=== PATIENT | female | born 1935 | race Caucasian/White ===

== ENCOUNTER 2025-03-11 12:33 | Outpatient (REF) | payer MEDICARE, SELFPAY ==
--- NOTE | ~2025-03-11 | XR_ITS ---
EXAMINATION: XR LUMBOSACRAL SPINE CLINICAL INFORMATION: M48.062 - Spinal stenosis, lumbar region with neurogenic claudication COMPARISON: None available. TECHNIQUE: Lateral views in neutral, flexion and extension position. AP view lumbar spine. FINDINGS: Limited examination due to decreased mineralization demonstrated no gross malalignment in neutral position or in flexion and or extension. 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 There is multilevel endplate sclerosis and marginal osteophyte formation with superior endplate compression deformity and likely 50% volume loss at L3. Vascular calcifications. No acute cortical disruption or gross malalignment. 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 Osteopenia versus osteoporosis. No gross listhesis or instability. Compression deformity likely old and osteoporotic at L3. Atherosclerosis disease. Electronically signed by: Johnny Whitten MD 03/11/2025 01:49 PM EDT
--- OUTSIDE RECORDS SUMMARY | 2025-03-11 14:31 | XMS_ITS | Data Portability ---
Author Organization 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 Plan of Treatment Reminders Order Date Submit Date Provider Last Modified By Organization Details Last Modified Time Details Appointments Establish ed Patient 15 2025 09:15A Kareem German MD Not available Not available Not available Lab TSH + free T4, serum 2024 08 025 ELIANE [facility], [address], [place], [address], 02/02/2025 07:05:43 Referral None recorded. Procedures None recorded. Surgeries None recorded. Imaging None recorded. Medication Orders None recorded. Patient TargetsNo targets recorded. Patient Instructions Encounter Date Encounter Id Patient Instructions Last Modified By Organization Details Last Modified Time 02/01/2025 [id number] osteoporosis: care instructions Not available 02/01/2025 15:33:31 A healthy lifestyle: care instructions Not available 02/01/2025 15:33:31 Reason for Referral None Reported. Results Created Date Observation Date Name Description Value Unit Range Abnormal Flag Note LastModifiedBy Organization Detail LastModifiedTime 02/02/20 25 02/02/2025 TSH+F REE T4 TSH 0.055 uIU/m L 0.450- 4.500 below low normal Not Available [facility] ([facility]) [address], [place], [address], 02/02/2025 07:05:43 02/02/20 25 02/02/2025 TSH+F REE T4 T4,free(dire ct) 1.83 NG/dL 0.82-1 .77 above high normal Not Available [facility] ([facility]) [address] [facility], [place], [address], 02/02/2025 07:05:43 Result Notes None recorded. Procedures Surgical History Date Name Laterality Status Provider Name and Address Organization Details Recorded Time 07/31/19 24 total knee replacement completed zach capps'jarett [facility]. 02/01/2025 14:54:40 12/29/19 23 total knee replacement completed zach o'jarett [facility]. 02/01/2025 14:54:07 hysterectomy completed zach o'jarett [facility]. 02/01/2025 14:54:53 tonsillectomy completed zach o'jarett [facility]. 02/01/2025 14:55:03 Hemorrhoidectomy completed zach o'jarett [facility]. 02/01/2025 14:55:24 [address] surgery [address] [facility] jefry'jarett [facility]. 02/01/2025 14:57:34 Imaging Results None recorded. Procedure Notes None recorded. Medical Equipment None Reported. Allergies Allergen ID Allergen Name Allergen Category Reaction Reaction Severity Criticality Documentation Date Start Date Code Code System Note Provider Name and Address Organization Details Recorded Time [id number] honey bee venom medicatio n Not available Not available Not available 02/01/2025 73228 7 RxNorm zach o'jarett [facility]. 14:56:51 Medications Name Sig Start Date Stop Date Status Note LastModified by Organization Details LastModified Time amoxicillin 500 mg capsule TAKE 1 CAPSULE BY MOUTH THREE TIMES A DAY FOR 7 DAYS 02/01 completed Not Available Not Available Not Available atorvastati n 40 mg tablet TAKE 1 TABLET BY MOUTH EVERY DAY active Not Available Not Available No t Available carvedilol 6.25 mg tablet TAKE 1 TABLET BY MOUTH TWICE A DAY active Not Available Not Available No t Available spironolact one 25 mg tablet TAKE 1 TABLET BY MOUTH EVERY DAY active Not Available Not Available No t Available levothyroxi ne 100 mcg tablet TAKE 1 TABLET BY MOUTH EVERY DAY active Not Available Not Available No t Available prednisolon e acetate 1 % eye drops,suspe nsion INSTILL ONE DROP INTO PROCEDURE EYE TWICE DAILY FOR 5 DAYS 02/01 completed Not Available Not Available Not Available levothyroxi ne 125 mcg tablet TAKE 1 TABLET BY MOUTH EVERY DAY active Not Available Not Available No t Available levothyroxi ne 150 mcg tablet TAKE 1 TABLET BY MOUTH EVERY DAY active Not Available Not Available No t Available ibuprofen 600 mg tablet TAKE 1 TABLET BY MOUTH EVERY 6 HOURS TO EVERY 8 HOURS NEEDED FOR PAIN active Not Available Not Available No t Available amoxicillin 875 mg-potassiu m clavulanate 125 mg tablet TAKE ONE TABLET BY MOUTH EVERY TWELVE HOURS FOR SEVEN DAYS 02/01 completed Not Available Not Available Not Available Asprin Ec Low Dose 81 mg tablet,analia yed release Take 1 tablet twice a day by oral route. active Not Available Not Available No t Available bumetanide take one tablet Friday and morning active Not Available Not Available No t Available brimonidine 0.2 %-timolol 0.5 % eye drops INSTILL ONE DROP IN TO BOTH EYES TWICE A DAY active Not Available Not Available No t Available Lumigan 0.01 % eye drops APPLY 1 DROP INTO BOTH EYES AT BEDTIME active Not Available Not Available No t Available Vitals Date Recorded Body height Body mass index (BMI) Body weight Pain severity - 0-10 verbal numeric rating [Score] - Reported Body temperature Heart rate Oxygen saturation Oxygen saturation in Arterial blood by Pulse oximetry Systolic And Diastolic Provider Name and Address Organization Details Last Updated DateTime 5 158.75 cm 31.9 kg/m2 38693.6 5 g 7 97.3 [degF] 69 /min 97 % 97 % 178/80 mm[Hg] zach thorpe MA [facility] 14:58:13 Social History Question Answer Notes LastModified by Organizat ion Details LastModified Time Tobacco Smoking Status Never Smoker zach charles MA [facility] 02/01/2025 14:52:02 What Is Your Level Of Caffeine Consumption? Occasional One Cup In The Morning Information not available 02/01/2025 Are You Deaf Or Do You Have Serious Difficulty Hearing? Yes [email or web address] Information not available 02/01/2025 Which Of Your Hands Is Dominant? Right Information not available 02/01/2025 What Was The Date Of Your Most Recent Tobacco Screening? 02/01/2025 [email or web address] Information not available 02/01/2025 Sex: Unknown Functional Status Question Answer Note LastModified by Organizat ion Details LastModified Time Do you use any illicit or recreational drugs? No [email or web address] Information not available 02/01/2025 What is your level of alcohol consumption? None [email or web address] Information not available 02/01/2025 Are you able to care for yourself independently? No Information not available 02/01/2025 Mental Status None recorded. Family History Relationship Description Onset Age of this Age Resolved Age Notes LastModified by Organization Details LastModified Time Father No current problems or disability [email or web address] Not available 01/14 14:50:46 Mother No current problems or disability Not available 01/14 14:50:46 Medical History No medical history recorded. Gynecological HistoryNo gynecological history recorded. Obstetrics History GPAL:G 0 P 0 0 0 0 Immunizations Vaccine Type Date Status Note Provider Nam e and Address Organization Details Recorded Time COVID-19, mRNA, LNP-S, PF, 100 mcg/0.5mL dose or 50 mcg/0.25mL dose 1 completed Not Available [facility] 02/01/2025 14:37:00 COVID-19, mRNA, LNP-S, PF, 100 mcg/0.5mL dose or 50 mcg/0.25mL dose 1 completed Not Available [facility] 02/01/2025 14:37:00 Influenza, MDCK, quadrivalent, preservative 2 completed Not Available [facility] 02/01/2025 14:37:00 Past Encounters Encounter ID Performer Location Encounter Start Date Encounter Closed Date Diagnosis/Indication Diagnosis SNOMED-CT Code Diagnosis ICD10 Code Diagnosis IMO Codes Diagnosis Note [id number] Tonio German MD [facility] [address] [facility] [address] [place] [address] 02/01/2025 14:35:58 02/01/2025 15:39:36 Primary hypothyroidism 31097608 E03.9 60684 I am repeating a TSH because I could not find a recent TSH on her labs. I told her to take levothyrox ine on empty stomach away from other medication . Rationale for taking medication this way was explained to the patient. We also discussed changing to a branded medication but she is not interested because Synthroid gave her a constant headache Senile osteoporosis 1804 0001 M81.0 2200 She is not interested in bone spasm medication and therefore file precaution s, adequate vitamin D and adequate calcium from diet and supplement ation. In addition she should do some weightbear ing exercises and gait training to prevent falls Prediabetes 889760112 R7 3.03 [id number] No medication s necessary. This following some diet and losing weight may help Health Concerns Section Related Observation LastModified by Organization Detai ls LastModified Time None Recorded Concern Status LastModified by Organization Details LastModified Time None Recorded Advance Directives Directive None Recorded Payers Insurance Date Sequence Insurance Name Policy Number Policy Molina Covered Member ID Molina Member ID Guarantor Name 02/11/2025 1 [facility]MEDICARE REPLACEMENT HMO) Chey Ragland [id number] Chey Ragland 02/11/2025 1 [facility] Chey Ragland [id number] Chey Ragland Notes Date Note Type Note Provider Name and Address Organization Details Recorded Time 02/01/2025 text/html ROS as noted in the HPI Referred for hypothyroidism but I do not have TSH. Her hypothyroidism started more than 40 years ago. She was on Euthyrox for a long time. She became thyrotoxic with this medication and therefore changed to levothyroxine when she was 49 years old. Her thyroid levels are up-and-down. She feels very sluggish and fatigued and therefore her primary care suggested for an endocrine opinion for her thyroid medication. She takes levothyroxine with all other pills and eats breakfast immediately. I do not have any TSH on her. I checked on the [facility] site. She does not have thyroid nodules She has osteoporosis. Her calcium intake seems to be fine. Vitamin D levels are fine. No fracture reported. She is at risk of fall because of her knee issues. She has not fallen down yet. Her T-score is given below of -2.5 qualifies her for a bone specific medications. Some of her friends have bad reaction to Fosamax and therefore does not want to use any kind of osteoporosis medication. Lab investigations done for bone loss were done for some degree and they were negative. PTH was 28, vitamin D was 58. CMS chemistry profile revealed EGFR of 43. Alkaline phosphatase was fine The main issue she has is sciatica radiating to her left side. She had both recently placed and did well On review of her labs, she has prediabetes with fasting glucose of 124 an A1c of 6.1%. Diet and exercise discussed with the patient. She is unable to exercise because of back pain Review of system is positive for fatigue, some weight gain and feeling very loopy. She is not interested in a lot of day-to-day things. She sleeps well. She lives with her son Bone [email or web address]/30/2024 10:17 AM ESTSusans result has an attachment that is not available.EXAM: BONE MINERAL DENSITYPROCEDURE: The bone mineral density (BMD) of the spine and proximal left femur was determined using an external X-ray source ([employer]).SITE: [facility]: Prior BMD of 2022FINDINGS:L1: BMD 0.84gm/cm2 T-Score -1.4 Z-score: 1.1 prior BMD 0.90Femoral neck: BMD 0.58gm/cm2 T-Score -2.5 Z-score: 0.1Total hip: BMD 0.87 gm/cm2 T-Score -0.6 Z-score: 1.7 prior BMD 0.89The World Health Organization (WHO) defines osteoporosis (as studied in post-menopausal women) as BMD with a T value of (-)2.5 or less at any site. Osteopenia is defined by a T value between (-)1.1 and (-)2.4.Trabecular bone score (TBS)L1-L4:TBS 1.27Z-score: na (normal microarchitecture: >1.31; degraded: <1.24) Tonio German MD [address] [place] [address], [phone], [facility]. 02/01/2025 17:01:53 OBGyn Episode No OBEpisode recorded.
== END 2025-03-11 12:34 | disposition home or self-care (01) ==
LOC: HO.HOSX 12:33
PROVIDERS: PCP Internal Medicine; Visit Provider Neurological Surgery
DX: M48.062 Spinal stenosis, lumbar region with neurogenic claudication (principal)
CPT/HCPCS: 72110; 99202

== ENCOUNTER 2025-03-11 12:33 | Outpatient (AMB) | payer MEDICARE, SELFPAY ==
--- OUTSIDE RECORDS SUMMARY | 2024-01-23 09:20 | XMS_ITS ---
Author Organization [facility] [email or web address], [facility] Address [address] [address] Care Team Providers Care Lab Asst Name Role Phone Zac Castro Primary Care Provider Unavail Emir Oleary Unavailable [phone] REASON FOR VISIT 3 mon f/u Encounters Encounter Location Date Provider Diagnosis [facility]ENCE [facility], [address] [address] 01/23/2024 Emir Reddy Plan Of Treatment Next Appt Details Provider Name:Emir horan, 06/02/2025 01:00:00 PM, [address] [facility], [address], [place], [address], Progress Notes * Chey RAGLANDDOB: (89 yo F)Acc No.[id number]:01/23/2024 Progress Notes Patient: Chey STONE Provider: Garth Reddy MD :1935 A ge:88 Y S ex:Female Date:01/23/2024 Address:[address] [place], [place] [phone] Pcp:Zac Castro Subjective: * Chief Complaints: * 1 . 3 mon f/u. * Medical History: Objective: * Vitals: Assessment: Plan: * Treatment: * * Electronic signature of Arturo Reddy MD on 03/11/2025 at 02:04 PM EDT Sign off status: Pending * Provider: Garth Reddy MD Date: 0 01/23/2024 Generated for Lore colunga/Medina/Deshaun on: 0 03/11/2025 02:04 PM EDT
--- OUTSIDE RECORDS SUMMARY | 2024-03-19 09:40 | XMS_ITS ---
Author Organization [facility] [employer], [facility] Address 33 [facility] [address] [place] [address] Care Team Providers Care Director Of Software Engineering Name Role Phone Zac Castro Primary Care Provider Unavail Emir Oleary Unavailable [phone] REASON FOR VISIT f/u Encounters Encounter Location Date Provider Diagnosis [facility] NEUR[facility]CIENCE [facility], [facility] [address] [facility] [address] [place] [address] 03/19/2024 Emir Reddy Plan Of Treatment Next Appt Details Provider Name:Emir horan, 06/02/2025 01:00:00 PM, [address] [facility], [address], [place], [address], Progress Notes * Chey RAGLANDDOB: (89 yo F)Acc No.[id number]:03/19/2024 Progress Notes Patient: Chey STONE Provider: Garth Reddy MD :1935 A ge:88 Y S ex:Female Date:03/19/2024 Address:[address] [place], [place] [phone] Pcp:Zac Castro Subjective: * Chief Complaints: * 1 . F/u. * Medical History: Objective: * Vitals: Assessment: Plan: * Treatment: * * Electronic signature of Arturo Reddy MD on 03/11/2025 at 02:04 PM EDT Sign off status: Pending * Provider: Garth Reddy MD Date: 1 Generated for Kendrai keanu/Medina/eTransmitting on: 0 03/11/2025 02:04 PM EDT
--- OUTSIDE RECORDS SUMMARY | 2024-04-07 07:00 | XMS_ITS ---
Author Organization [facility] [employer], [facility] Address 33 [facility] [address] [place] [address] Care Team Providers Care Environmental Services Assistant Name Role Phone Zac Castro Primary Care Provider Unavail Emir Oleary Unavailable [phone] REASON FOR VISIT MRI f/u Encounters Encounter Location Date Provider Diagnosis [facility], [address] [place] [address] 04/07/2024 Emir Reddy Plan Of Treatment Next Appt Details Provider Name:Emir horan, 06/02/2025 01:00:00 PM, [address] [facility], [address], [place], [address], Progress Notes * Chey RAGLANDDOB: (89 yo F)Acc No.[id number]:04/07/2024 Progress Notes Patient: Chey STONE Provider: Garth Reddy MD :1935 A ge:88 Y S ex:Female Date:04/07/2024 Address:[address] [place], [place] [phone] Pcp:Zac Castro Subjective: * Chief Complaints: * 1 . MRI f/u. * Medical History: Objective: * Vitals: Assessment: Plan: * Treatment: * * Electronic signature of Arturo Reddy MD on 03/11/2025 at 02:04 PM EDT Sign off status: Pending * Provider: Garth Reddy MD Date: 1 Generated for Lore colunga/Medina/eTransmitting on: 0 03/11/2025 02:04 PM EDT
--- NOTE | 2025-03-11 12:57 | A.SPINEOV_ITS ---
Vital Signs 03/11/25 12:58 Height 5 ft 4 in Weight 174 lb BMI 29.9 Intake Visit Reasons: low back pain/sciatica Intake Note: Ms. Ragland is here today c/o low back pain that radiates to the left leg. Windows Infrastructure Engineer Required: No Allergies No Known Allergies Allergy (Verified 03/11/25 12:58) Physical Exam Vital Signs: BMI result Body Mass Index 29.9 Assessment & Plan Assessment & Plan (1) Lumbar stenosis with neurogenic claudication: Code(s): M48.062 - Spinal stenosis, lumbar region with neurogenic claudication Category: Medical Plan: Dear colleague Thank you for referring Chey Ragland to the office today with a chief complaint of left sided sciatica. HPI: This 89-year-old female recently had knee replacements done. Shortly after she developed pain radiating down the front of her thigh with walking and standing. Leaning forward or sitting down improves the symptoms. She denies weakness or numbness. The right side is unaffected. The following conservative treatment options were tried without success antiinflammatories, tylenol, physical therapy for more than a year, and cortisone shots. In the steroid injections gave her temporary relief. PMH: Hypertension, hypothyroidism, osteoporosis Medications: Levothyroxine, atorvastatin, baby aspirin, Pina legs spiron olactone Allergies: NKDA Social history: Lives alone. Nonsmoker Physical Exam: Pleasant female. On inspection of the lumbar spine there is a mild lumbar degenerative scoliosis the apex towards the left side. Straight leg raise is negative. No motor or sensory deficits. No pathological reflexes. Radiological Studies: MRI done at [facility] on 02/16/2025 shows L2-3, L3-4 and L4-5 imhhwrnm-bu-pelutc central stenosis and xulwghlo-rw-nruhno left L3 and L4 foraminal stenosis caused by the degenerative scoliosis. Dynamic x-rays today show degenerative scoliosis with the apex at L2-3 and L3-4. Impression/Plan: This patient is suffering from unilateral claudication due to spinal stenosis at L3-4 and L4-5 with central stenosis and severe L4 and L3 foraminal stenosis on the left side. I do not think she is symptomatic from the L2-3 region. The symptoms are debilitating and causing her to be house bound. Trying to fix the unilateral neurogenic claudication symptoms seems be more beneficial than doing nothing. Therefore I offered her a left L3-4 and L4-5 decompression with a L3 and L4 foraminotomy followed by posterior segmental instrumentation L3-L5 and inter transverse process fusion. Thank you for allowing me to participate in your patients care. total time spent was 50 minutes in counseling ,coordination of plan, personal review of imaging, surgical decision making and subsequent plan Marvin Suh MD, PhD Spine Fellowship Trained Neurosurgeon Director, [facility] Orders: Orders XR lumbar spine 4V min Today M48.062 - Spinal stenosis, lumbar region with neurogenic claudication Coding Level of Care Code New Pt Level 4 (18428) Diagnoses Lumbar stenosis with neurogenic claudication M48.062
[2025-03-11 12:58] VITALS: BMI 29.9
--- OUTSIDE RECORDS SUMMARY | 2025-03-11 14:04 | XMS_ITS | Patient Health Record ---
Author Organization [facility] [employer], [facility] Address [address] [facility] [address] [place] [address] Care Team Providers Care Construction Management Assistant Name Role Phone YolisZackary onofreneth Primary Care Provider Unavail able Emir Reddy Unavailable [phone] Allergies Allergen (clinical drug ingredient) Drug/Non Drug Allergy documented on EMR Reaction Allergy Type Onset Date Status Bee Sting Unknown Allergy Active Results Component Value Reference Range Notes MR-Brain (C-/C+) CPT 06452 Reviewed date:05/18/2024 02:58:10 PM Interpretation: Performing Lab: Notes/Report: [facility] - [facility] Accession Number: [id number] Patient Name: CHEY GODDARD Date of : 1935 Date of Exam: 05-16-2024 Referring Physician: Emir Reddy [facility], [address], [address] [place] [address] Exam: MR Brain (C-/C+) CPT 48668 [facility] EX[facility]ATION: MRI brain without and with contrast PHARMACEUTICAL: 0.1 mmol/kg of Dotarem administered intravenously. TECHNIQUE: Multiplanar and multisequence MRI of brain performed without and with intravenous administration of gadolinium. Sequences obtained include: Axial: T2 with fat suppression, FLAIR, DWI with ADC mapping, T1 and GRE/susceptibility images. Sagittal: T1 Postgadolinium sequences: Axial 3D gradient T1, Coronal T1 INDICATION: 88-year-old female who complained of dizziness and giddiness. Prior MR demonstrated an area of susceptibility change in the right posterior frontal centrum semiovale concerning for blood products or cavernoma. Also, a venous angioma was suspected. Follow-up evaluation. COMPARISON: Brain MR exam from 10/18/2023. FINDINGS: The ventricles appear normal in size and there is no evidence hydrocephalus. There is mild prominence of the cortical sulci. There is a 7 mm lesion in the posterior right frontal centrum semiovale demonstrating a peripheral rim of susceptibility change and a central area of increased signal intensity. 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 This finding is stable since the exam from 10/18/2023. There are multiple scattered focal areas of signal abnormality in the periventricular white matter of both cerebral hemispheres. These lesions are nonspecific but probably represent chronic small vessel change. No diffusion abnormality. Seen to indicate an acute infarct. There is a tubular branching enhancing structure in the posterior right frontal lobe consistent with a developmental venous anomaly. This lesion is located near the small cavernoma discussed above. No other enhancing abnormalities are identified within the brain. The orbits appear intact. Patient is status post removal cataracts. The visualized portion of paranasal sinuses appear relatively clear. IMPRESSION: 1. There is a 7 mm lesion in the posterior right centrum semiovale demonstrating a peripheral rim of low signal intensity in central area of increased signal. 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 This finding is stable since the prior exam from 10/18/2023. 2. 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 3. There are scattered small focal areas of signal abnormality in the periventricular white matter of both cerebral hemispheres. These lesions are nonspecific and could represent chronic small vessel change. The size is not significantly changed since the prior exam from 10/18/2023. 4. No diffusion abnormality is seen to indicate an acute infarct. 5. No other enhancing lesion is identified within the brain. If this radiology report contains a blank impression section, it is an incomplete radiology report. Please contact the interpreting radiologist or applicable radiology division as soon as possible to obtain the completed interpretation. Workstation ID: [id number] Electronically Signed By: Tavares Agrawal MD Reason For Referral No Information Medications Medication SIG (Take, Route, Frequency, Duration) Notes Start Date End Date Status Atorvastatin Calcium 40 MG TAKE 1 TABLET BY MOUTH EVERY DAY Oral; Duration: 90 Days Active Spironolactone 25 MG TAKE 1 TABLET BY MOUTH EVERY DAY Oral; Duration: 90 Days Active Bumetanide 0.5 MG PLEASE SEE ATTACHED FOR DETAILED DIRECTIONS Oral; Duration: 90 Days M,T twice a week Not-Taking Levothyroxine Sodium 150 MCG TAKE 1 TABLET BY MOUTH EVERY DAY Oral Once a day; Duration: 90 days Active Carvedilol 6.25 MG TAKE 1 TABLET BY MOUTH TWICE A DAY Oral; Duration: 90 Days Active Brimonidine Tartrate-Timolol 0.2-0.5 % INSTILL 1 DROP ON BOTH EYES TWICE DAILY Ophthalmic; Duration: 30 Days Active Lumigan 0.01 % USE 1 DROP INTO BOTH EYES AT BEDTIME Ophthalmic; Duration: 90 Days Not-Taking Amoxicillin 500 MG TAKE 4 TABLET BY MOUTH ONCE A DAY 1 HOUR BEFORE THE DENTAL PROCEDURE Oral; Duration: 4 Days Not-Taking Latanoprost 0.005 % 1 drop into affected eye in the evening Ophthalmic Once a day Active Losartan Potassium 50 MG TAKE 1 TABLET BY MOUTH EVERY DAY Oral; Duration: 90 Days Not-Taking Aspirin 81 81 MG 1 tablet Orally Once a day Active Meclizine HCl 12.5 MG TAKE 1 TABLET BY MOUTH THREE TIMES A DAY Oral; Duration: 30 Days Not-Taking PreserVision AREDS - as directed Orally Active Social History Tobacco Use: Social History Observation Description Date Details (start date - stop date) Never Smoker NA - NA Tobacco Use/Smoking Question Answer Notes Are you a nonsmoker Alcohol Screen (Audit-C) Question Answer Notes Did you have a drink containing alcohol in the p ast year? No Points 0 Interpretation Negative Problems Problem Type SNOMED Code ICD Code Onset Dates Problem Status W/U Status Risk Notes Problem Hyperlipidemia (97395718) Hyperlipidemia (E78.5) Active confirmed Problem Hypothyroidism (92752918) Hypothyroidism (E03.9) Active confirmed Problem Hypertension (18544865) HTN (hypertension) (I10) Active confirmed Vital Signs Heart Rate 68 /min 06/01/2024 Blood pressure diastolic 78 mm Hg 06/01/2024 Oximetry 95 % 06/01/2024 Height 64 in 06/01/2024 Blood pressure systolic 126 mm Hg 06/01/2024 Weight 180 lbs 06/01/2024 BMI 30.89 kg/m2 06/01/2024 Encounters Encounter Location Date Provider Diagnosis [address] [address] 06/01/2024 Emir Reddy Abnormal brain MRI R90.89 and Dizziness and giddiness R42 [facility], [address] [address] 03/26/2024 Emir Tysonseth Assessments Encounter Date Diagnosis (ICD Code) Assessment Notes Treatment Notes Treatment Clinical Notes Section Notes 06/01/2024 Abnormal brain MRI (ICD-10 - R90.89) 88-year-old right-handed woman with past medical history listed above including recent issues with both hypertension and hypotension presenting for neurology evaluation for ongoing sensation of lightheadedness when standing or walking which is absent with sitting or lying down. Neurologic exam is reassuring with only some findings of mild sensory loss in both feet which is appropriate for age. No nystagmus or ataxia seem to point towards a cerebellar lesion based on exam. It appears as if most of her symptoms are likely related to hear a large swings in blood pressure or may be peripheral vertigo. I strongly encouraged her to continue to follow with her openstack developer and primary care doctor to optimize her blood pressure control medications to reduce her hypertension and avoid hypotension. An inner ear pathology such as peripheral vertigo was also reasonable and she tells me that she has noticed some improvement with ongoing vestibular rehab. She is encouraged to continue with this as she is benefiting from it. If she has any worsening symptoms in the future we can consider reevaluation in clinic. The MRI showed some GRE/SWI changes consistent with hemosiderin staining in the right centrum semiovale. Most likely an abnormal blood vessel such as a cavernoma, venous angioma, or AVM. 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 No surrounding edema or mass effect. We reviewed both the radiology report and the images themselves during today's clinic visit. For now we will continue to monitor this both clinically and with repeat MRI with contrast in about 1 year and will schedule follow-up in clinic so they can review the results once they are available. Her family is also very concerned that she is not drinking adequate water. It sounds like she is drinking maybe 3 bottles of fluid a day. We discussed the importance of adequate hydration and different methods to try to encourage her to drink more including purchasing a motivational large drinking container or setting out multiple bottles in the day for the appropriate amount she should be drinking. 06/01/2024 Dizziness and giddiness (ICD-10 - R42) 88-year-old right-handed woman with past medical history listed above including recent issues with both hypertension and hypotension presenting for neurology evaluation for ongoing sensation of lightheadedness when standing or walking which is absent with sitting or lying down. Neurologic exam is reassuring with only some findings of mild sensory loss in both feet which is appropriate for age. No nystagmus or ataxia seem to point towards a cerebellar lesion based on exam. It appears as if most of her symptoms are likely related to hear a large swings in blood pressure or may be peripheral vertigo. I strongly encouraged her to continue to follow with her openstack developer and primary care doctor to optimize her blood pressure control medications to reduce her hypertension and avoid hypotension. An inner ear pathology such as peripheral vertigo was also reasonable and she tells me that she has noticed some improvement with ongoing vestibular rehab. She is encouraged to continue with this as she is benefiting from it. If she has any worsening symptoms in the future we can consider reevaluation in clinic. The MRI showed some GRE/SWI changes consistent with hemosiderin staining in the right centrum semiovale. Most likely an abnormal blood vessel such as a cavernoma, venous angioma, or AVM. 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 No surrounding edema or mass effect. We reviewed both the radiology report and the images themselves during today's clinic visit. For now we will continue to monitor this both clinically and with repeat MRI with contrast in about 1 year and will schedule follow-up in clinic so they can review the results once they are available. Her family is also very concerned that she is not drinking adequate water. It sounds like she is drinking maybe 3 bottles of fluid a day. We discussed the importance of adequate hydration and different methods to try to encourage her to drink more including purchasing a motivational large drinking container or setting out multiple bottles in the day for the appropriate amount she should be drinking. 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
--- OUTSIDE RECORDS SUMMARY | 2025-03-11 14:04 | XMS_ITS | Encounter Summary ---
Author Organization [facility] Address [address] [place] [address] Care Team Providers Care Eye Clinic Manager Name Role Phone Zac Castro MD Primary Care Provider + Encounter Details Date Type Department Care Team (Late st Contact Info) Description 06/05/2023 External Result Entry [facility] [address] [place] [address] Rochelle Ruiz MA Social History Tobacco Use Types Packs/Day Years Used Date Smoking Tobacco: Never Smokeless Tobacco: Never Comments:: Comments Unknown Sex and Gender Information Value Date Recorded Sex Assigned at Female 03/01/2023 3:04 PM EDT Legal Sex Female 3:41 AM EDT Gender Identity Female 03/01/2023 3:04 PM EDT Sexual Orientation Not on file documented as of this encounter Plan of Treatment Not on file documented as of this encounter Procedures * Due to [place] [employer] law, this organization might not be sharing negative HIV tests. Procedure Name Priority Date/Time Associated Diagnosis Comments CBC, OUTSIDE LAB Routine 05/21/2023 VITAMIN D 25 OH, OUTSIDE LAB Routine 05/21/2023 IRON, OUTSIDE LAB Routine 05/21/2023 FERRITIN, OUTSIDE LAB Routine 05/21/2023 COMPREHENSIVE METABOLIC PANEL, OUTSIDE LAB Routine 05/21/2023 documented in this encounter Results * Due to [place] [employer] law, this organization might not be sharing negative HIV tests. * CBC, Outside Lab (05/21/2023) Hemoglobin 14.6 g/dL Hematocrit 44.0 % Platelets 195 10*3/uL Blood Structure of peripheral vein / Unknown 05/21/2023 us Unknown Provider LAB BLOOD ORDERABLES Final R esult * Comprehensive Metabolic Panel, Outside Lab (05/21/2023) Pathologist [facility] Sodium 140 mmol/L Potassium 5.0 Chloride 103 Carbon Dioxide 21 Glucose 105 BUN 29 mg/dL Creatinine 1.02 mg/dL eGFR Non- 54 Calcium 9.5 mg/dL Total Protein 6.6 g/dL Albumin 4.3 g/dL Blood Structure of peripheral vein / Unknown 05/21/2023 us Unknown Provider LAB BLOOD ORDERABLES Final R esult * Iron, Outside Lab (05/21/2023) Pathologist [facility] Iron, Total 74 Blood Structure of peripheral vein / Unknown 05/21/2023 us Unknown Provider LAB BLOOD ORDERABLES Final R esult * Vitamin D 25 OH, Outside Lab (05/21/2023) Pathologist [facility] Vitamin D 25 OH 65.2 Blood 05/21/2023 us Unknown Provider LAB BLOOD ORDERABLES Final R esult * Ferritin, Outside Lab (05/21/2023) Pathologist [facility] Ferritin 127 Blood Structure of peripheral vein / Unknown 05/21/2023 us Unknown Provider MD LAB BLOOD ORDERABLES Final R esult documented in this encounter Visit Diagnoses Not on filedocumented in this encounter Care Teams Eye Clinic Manager Relationship Specialty Start Date End Date Zac Castro MD PCP - General Internal Medicine 03/27/21 documented as of this encounter
--- OUTSIDE RECORDS SUMMARY | 2025-03-11 14:04 | XMS_ITS | Encounter Summary ---
Author Organization [facility] Address [address] [place] [address] Care Team Providers Care Social Work Case Manager Name Role Phone Zac Castro MD Primary Care Provider [phone] Encounter Details Date Type Department Care Team (Late st Contact Info) Description 07/19/[address] [facility] Pre-Admission Testing [address] [place] [address] Ramona Caicedo, SHAVON Social History Tobacco Use Types Packs/Day Years Used Date Smoking Tobacco: Never Smokeless Tobacco: Never Comments Unknown Sex and Gender Information Value Date Recorded Sex Assigned at Not on file Legal Sex Female 6:56 PM EDT Gender Identity Not on file Sexual Orientation Not on file documented as of this encounter Plan of Treatment Not on file documented as of this encounter Procedures * Due to [place] state law, this organization might not be sharing negative HIV tests. Procedure Name Priority Date/Time Associated Diagnosis Comments MRSA CULTURE SCREEN, NASAL ONLY Routine 07/19/2022 11:52 AM EST Preoperative examination ACTIVATED PARTIAL THROMBOPLASTIN TIME (APTT), PLASMA Routine 07/19/2022 10:54 AM EST Preoperative examination Primary osteoarthritis of left knee Primary hypertension Acquired hypothyroidism Stage 3 chronic kidney disease, unspecified whether stage 3a or 3b CKD Hyperlipidemia, unspecified hyperlipidemia type PROTHROMBIN TIME (PT) (INR), BLOOD Routine 07/19/2022 10:54 AM EST Preoperative examination Primary osteoarthritis of left knee Primary hypertension Acquired hypothyroidism Stage 3 chronic kidney disease, unspecified whether stage 3a or 3b CKD Hyperlipidemia, unspecified hyperlipidemia type CBC INCLUDES DIFFERENTIAL AND PLATELET COUNT Routine 07/19/2022 10:54 AM EST Preoperative examination Primary osteoarthritis of left knee Primary hypertension Acquired hypothyroidism Stage 3 chronic kidney disease, unspecified whether stage 3a or 3b CKD Hyperlipidemia, unspecified hyperlipidemia type BASIC METABOLIC PANEL WITH (GFR) Routine 07/19/2022 10:54 AM EST Preoperative examination Primary osteoarthritis of left knee Primary hypertension Acquired hypothyroidism Stage 3 chronic kidney disease, unspecified whether stage 3a or 3b CKD Hyperlipidemia, unspecified hyperlipidemia type documented in this encounter Results * Due to [place] state law, this organization might not be sharing negative HIV tests. * MRSA CULTURE SCREEN, NASAL ONLY (07/19/2022 11:52 AM EST) Methicillin Resistant Staphylococcus Aureus Screen SEE NOTE [facility] Comment: MRSA CULTURE SCREEN Micro Number: [id number] Test Status: Final Specimen Source: Not given Specimen Quality: Adequate Result: No methicillin resistant Staphylococcus aureus (MRSA) isolated. 07/19/2022 11:5 2 AM EST 07/19/2022 9:31 PM EST Narrative Resulting Agency Comment [id number] Ramona Caicedo NP LABORATORY Final Result Performing Organization Address City/State/[facility] Co de Phone Number [facility] [address] [place] [address] * CBC INCLUDES DIFFERENTIAL AND PLATELET COUNT (07/19/2022 10:54 AM EST) WBC 5.6 3.8 - 10.8 Thousand/u L [facility] RBC 4.87 3.80 - 5.10 Million/uL [facility] Hemoglobin 13.7 11.7 - 15.5 g/dL [facility] Hematocrit 41.9 35.0 - 45.0 % [facility] MCV 86.0 80.0 - 100.0 fL [facility] MCH 28.1 27.0 - 33.0 pg [facility] MCHC 32.7 32.0 - 36.0 g/dL [facility] RDW 13.0 11.0 - 15.0 % [facility] PLT 224 140 - 400 Thousand/u L [facility] MPV 10.8 7.5 - 12.5 fL [facility] Neutrophils # 3668 1500 - 7800 cells/uL [facility] Lymphocytes # 1159 850 - 3900 cells/uL [facility] Monocytes # 526 200 - 950 cells/uL [facility] Eosinophils # 218 15 - 500 cells/uL [facility] Basophils # 28 0 - 200 cells/uL [facility] Neutrophils % 65.5 % [facility] Lymphocytes % 20.7 % [facility] Monocytes % 9.4 % [facility] Eosinophils % 3.9 % [facility] Basophils % 0.5 % [facility] 07/19/2022 10:5 4 AM EST 07/19/2022 3:53 PM EST Narrative Resulting Agency Comment [id number] us Ramona Caicedo [facility] SAME DAY RESULT Final Result [facility] [address] [place] [address] * (ABNORMAL) BASIC METABOLIC PANEL WITH (GFR) (07/19/2022 10:54 AM EST) Glucose 96 65 - 99 mg/dL [facility] Comment:Fasting reference in terval Urea Nitrogen Blood (BUN) 33(H) 7 - 25 mg/dL [facility] Creatinine 0.88 0.60 - 0.95 mg/dL [facility] EGFR 65 > OR = 60 mL/min/1.7 3m2 [facility] Comment: The eGFR is based on the CKD-EPI 2020 equation. To calculate the new eGFR from a previous Creatinine or Cystatin C result, go to https://www.kidney.org/professionals/ kdoqi/gfr%5Fcalculator BUN/Creatinine Ratio 38(H) 6 - 22 (calc) [facility] Sodium 137 135 - 146 mmol/L [facility] Potassium 4.7 3.5 - 5.3 mmol/L [facility] Chloride 104 98 - 110 mmol/L [facility] Carbon dioxide 25 20 - 32 mmol/L [facility] Calcium 9.6 8.6 - 10.4 mg/dL [facility] 07/19/2022 10:5 4 AM EST 07/19/2022 3:53 PM EST Narrative [facility] - 07/19/2022 5:39 PM EST Please note that this estimated GFR does not include an adjustment for the patient's height or weight, and can therefore, be viewed as reliable only for patients with heights between 60 and 72 . More precise quantification using a 24-hour urine sample or height-based algorithm is recommended for patients outside of this range of height and for those individuals with more precise needs for GFR calculation. Resulting Agency Comment [id number] us Ramona Caicedo NP LABORATORY Final Result Performing Organization Address [facility] de Phone Number [facility] [address] [place] [address] * PROTHROMBIN TIME (PT) (INR), BLOOD (07/19/2022 10:54 AM EST) INR 1.0 [facility] Comment: Reference Range 0.9-1.1 Moderate-intensity Warfarin Therapy 2.0-3.0 Higher-intensity Warfarin Therapy 3.0-4.0 PT 10.0 9.0 - 11.5 sec [facility] Comment: For additional information, please refer to [email or web address]antage/faq/VIO411 (This link is being provided for informational/ educational purposes only.) 07/19/2022 10:5 4 AM EST 07/19/2022 3:53 PM EST Narrative Resulting Agency Comment [id number] us Ramona Caicedo NP LAB SAME DAY RESULT Final Result Performing Organization Address [facility] de Phone Number [facility] [address] [place] [address] * ACTIVATED PARTIAL THROMBOPLASTIN TIME (APTT), PLASMA (07/19/2022 10:54 AM EST) Thromboplastin Time 26 23 - 32 sec [facility] Comment: This test has not been validated for monitoring unfractionated heparin therapy. For testing that is validated for this type of therapy, please refer to the Heparin Anti-Xa assay (test code 50915). For additional information, please refer to http://[employer] Journey.[employer]/faq/ZDS980 (This link is being provided for informational/educational purposes only.) 07/19/2022 10:5 4 AM EST 07/19/2022 3:53 PM EST Narrative Resulting Agency Comment [id number] us Ramona J Caicedo [facility] SAME DAY RESULT Final Result [facility] [address] [place] [address] documented in this encounter Visit Diagnoses Diagnosis Preoperative examination Preoperative examination, unspecified Primary osteoarthritis of left knee Primary localized osteoarthrosis, lower leg Primary hypertension Unspecified essential hypertension Acquired hypothyroidism Unspecified hypothyroidism Stage 3 chronic kidney disease, unspecified whether stage 3a or 3b CKD (HCC) Hyperlipidemia, unspecified hyperlipidemia type documented in this encounter Care Teams Social Work Case Manager Relationship Specialty Start Date End Date Zac Castro MD [facility] [address] [place] [address] PCP - General Internal Medicine 03/31/10 documented as of this encounter
--- OUTSIDE RECORDS SUMMARY | 2025-03-11 14:04 | XMS_ITS | Clinical Summary ---
Author Organization [facility] Address [address] [place] [address] Care Team Providers Care Experimental Rocketsled Mechanic Name Role Phone Zac Csatro MD Primary Care Provider + Allergies Active Allergy Reactions Criticality Noted Date Comments Atenolol Other (see comments) 12/29/2007 FATIGUE Codeine Sulfate Rash 07/30/2000 Hydrochlorothiazide Unknown 12/29/2007 Lisinopril Other (see comments) 12/29/2007 LEG SWELLING Venom-Honey Bee Anaphylaxis High 09/16/2023 Medications atorvastatin (LIPITOR) 40 mg tablet Take 40 mg by mouth nightly. 1 Active calcium carbonate-vitam in D3 600 mg-20 mcg (800 unit) tablet Caltrate 600+D TABS Refills: 0 Active Active levothyroxine (SYNTHROID, LEVOTHROID) 150 mcg tablet Take 150 mcg by mouth once a day. 1 Active CeleBREX 200 mg capsule Take 200 mg by mouth 2 times a day as needed. 2 Active aspirin 81 mg EC tablet Take 81 mg by mouth once a day. Active spironolactone (ALDACTONE) 25 mg tablet Take 25 mg by mouth once a day. Active carvediloL (COREG) 6.25 mg tablet 6.25 mg 2 times a day with meals. 3 Active bumetanide (BUMEX) 0.5 mg tablet Take 0.5 mg by mouth once a day. Take 1 tablet daily with an additional tablet as needed for weight gain > 2lbs in 1 day or 5lbs in a week. 3 Active losartan (COZAAR) 50 mg tablet Take 50 mg by mouth once a day. 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 Arthritis of multiple sites 08/06/2013 Encounters Date Type Department Care Team Description 02/16/2025 10:52 AM EDT - 02/16/2025 11:59 PM EDT Hospital Encounter [facility] [address] [place] [address] Radiculopathy of lumbar region Discharge Disposition: Home or Self Care () 02/16/2025 Telephone [facility] [address] [place] [address] Kerri Ponce PA 01/27/2025 9:30 AM EDT Office Visit [facility] [address] [place] [address] Kerri Ponce PA Radiculopathy of lumbar region (Primary Dx); Lumbar facet arthropathy; Spinal stenosis of lumbar region with neurogenic claudication 01/19/2025 Transcribe Orders [facility] Scanned HIM Department [address] [place] [id number] Zac Castro MD Low back pain, unspecified back pain laterality, unspecified chronicity, unspecified whether sciatica present (Primary Dx) from Last 3 Months Family History Medical History Relation Name Comments Other Father Family History of chronic kidney disease /Family History of hypertension Other Mother Family History of hypertension Relation Name Status Comments Father Mother Social History Tobacco Use Types Packs/Day Years Used Date Smoking Tobacco: Never Smokeless Tobacco: Never Comments:: Comments No Sex and Gender Information Value Date Recorded Sex Assigned at Female 03/01/2023 3:04 PM EDT Legal Sex Female 3:41 AM EDT Gender Identity Female 03/01/2023 3:04 PM EDT Sexual Orientation Not on file Last Filed Vital Signs Vital Sign Reading Time Taken Comments Blood Pressure 124/64 06/05/2023 1:18 PM EST Pulse 86 04/14/2023 11:34 AM EDT Temperature 36.6 C (97.9 F) 08/30/2021 1:45 PM EDT Respiratory Rate - - Oxygen Saturation 98% 08/30/2021 2:09 PM EDT Inhaled Oxygen Concentration - - Weight 80.1 kg (176 lb 9.6 oz) 01/27/2025 8:56 A M EDT Height 164 cm (5' 4.57 ) 01/27/2025 8:56 AM EDT Body Mass Index 29.78 01/27/2025 8:56 AM EDT Plan of Treatment Health Maintenance Due Date Last Done Comments Zoster Vaccines (1 of 2) 08/15/1987 Pneumococcal Vaccine: 50+ Years (2 of 2 - PCV) 07/05/2003 07/05/2002 DTaP,Tdap,and Td Vaccines (1 - Tdap) 2005 08/13/2005, 04/14/1996, 04/14/1990 RSV Vaccine (60+ years old and patients) (1 - 1-dose 75+ series) 2012 Urine Microalbumin 12/06/2023 12/05/2022, 10/03/2015 Basic Metabolic Panel 05/21/2024 05/21/2023 , 12/05/2022, 09/20/2022, Additional history exists Alcohol/Substance Use Screening 06/16/2024 Depression Screening and Follow-Up 06/16/2024 Health Care Proxy Review 06/16/2024 Social Drivers of Health Annual Screening 06/16/2024 COVID-19 Vaccine ( season) 2025 08/26/2020, 07/29/2020 Influenza Vaccine (#1) 2025 2, 03/31/2010, 03/18/2009, Additional history exists Osteoporosis Screening Completed 06/30/2024, 2022 Hepatitis B Vaccines Aged Out No long er eligible based on patient's age to complete this topic Procedures * Due to [place] [employer] law, this organization might not be sharing negative HIV tests. Procedure Name Priority Date/Time Associated Diagnosis Comments MRI LUMBAR SPINE WO CONTRAST Routine 02/16/2025 12:30 PM EDT Radiculopathy of lumbar region DEXA AXIAL AND TBS Routine 06/30/2024 9: 40 AM EST Age-related osteoporosis without current pathological fracture COMPREHENSIVE METABOLIC PANEL, OUTSIDE LAB Routine 05/21/2023 from Last 3 Months or Most Recently Relevant to Health Maintenance Results * Due to [place] [employer] law, this organization might not be sharing negative HIV tests. * MRI lumbar spine without contrast (02/16/2025 12:30 PM EDT) Anatomical Region Laterality Modality Spine, L-spine Magnetic Resonan ce 02/16/2025 12:0 0 PM EDT Impressions 02/16/2025 12:54 PM EDT Moderate to severe spinal stenosis at L2-3, L3-4 and L4-5 as above-described. Severe left-sided neuroforaminal compromise is noted at L3-4. If this radiology report contains a blank impression section, it is an incomplete radiology report. Please contact the interpreting radiologist or applicable radiology division as soon as possible to obtain the completed interpretation. Workstation ID: [id number] Narrative 02/16/2025 12:54 PM EDT EXAMINATION: MRI LUMBAR SPINE WO CONTRAST INDICATION: Lumbar radiculopathy, symptoms persist with > 6 wks treatment M54.16 - I10 - Radiculopathy, lumbar region TECHNIQUE: MRI was performed on a [employer] system. Imaging sequences include T1 sagittal, T2 sagittal, inversion recovery sagittal; T1 and T2 axial. COMPARISON: 04/17/2021 FINDINGS: There is interval progression of degenerative disc disease at L2-3 with complete loss of disc space at this time and approximately a 4 mm retrolisthesis of L2 on L3. No change grade 1 anterospondylolisthesis of L4-L5. There is a prominent right lumbar curve. The conus terminates at L1. The vertebral heights are well-preserved. The prevertebral soft tissues are unremarkable. 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 Modic type I changes are seen at L2-3 At L1-L2, mild spinal stenosis secondary to a circumferential disc bulge with small superimposed the disc protrusion with inferior migration. Disc osteophytic changes result in [id number] right neuroforaminal compromise. At L2-L3, moderate to severe spinal stenosis secondary to a circumferential disc bulge/posterior bony ridge complex short pedicles and hypertrophic changes of the facets and ligaments. Disc osteophytic changes result in moderate right and moderate to severe left neuroforaminal compromise. At L3-L4, moderate to severe spinal stenosis secondary to a circumferential disc bulge, short pedicles and hypertrophic changes of the facets and ligaments. Disc osteophytic changes result in moderate right and severe left neuroforaminal compromise. At L4-L5, moderate to severe spinal stenosis secondary to circumferential disc bulge, short pedicles and hypertrophic changes of the facets and ligaments. Disc osteophytic changes result in moderate to severe bilateral neuroforaminal compromise. At L5-S1, mild to moderate spinal stenosis secondary to short pedicles, circumferential disc bulge and hypertrophic changes of the facets and ligaments especially on the right. Disc osteophytic changes result in moderate right-sided neuroforaminal compromise. Resulting Agency Comment [id number] Procedure Note Johnny Chapman MD - 02/16/2025 EXAMINATION: MRI LUMBAR SPINE WO CONTRAST INDICATION: Lumbar radiculopathy, symptoms persist with > 6 wks gmivdbeivL12.16 - I10 - Radiculopathy, lumbar region TECHNIQUE: MRI was performed on a 1[employer] system. Imaging sequences include [id number], T2 sagittal, inversion recovery sagittal; T1 and T2 axial. COMPARISON: 04/17/2021 FINDINGS: There is interval progression of degenerative disc disease at L2-3 withcomplete loss of disc space at this time and approximately a 4 mmretrolisthesis of L2 on L3. No change grade 1 anterospondylolisthesis ofL4-L5. There is a prominent right lumbar curve. The conus terminates at L1. The vertebral heights are well-preserved. The prevertebral soft tissues are unremarkable. 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 Modictype I changes are seen at L2-3 At L1-L2, mild spinal stenosis secondary to a circumferential disc bulgewith small superimposed the disc protrusion with inferior migration. Discosteophytic changes result in [id number] right neuroforaminalcompromise. At L2-L3, moderate to severe spinal stenosis secondary to acircumferential disc bulge/posterior bony ridge complex short pedicles andhypertrophic changes of the facets and ligaments. Disc osteophytic changesresult in moderate right and moderate to severe left neuroforaminalcompromise. At L3-L4, moderate to severe spinal stenosis secondary to acircumferential disc bulge, short pedicles and hypertrophic changes of thefacets and ligaments. Disc osteophytic changes result in moderate rightand severe left neuroforaminal compromise. At L4-L5, moderate to severe spinal stenosis secondary to circumferentialdisc bulge, short pedicles and hypertrophic changes of the facets andligaments. Disc osteophytic changes result in moderate to severe bilateralneuroforaminal compromise. At L5-S1, mild to moderate spinal stenosis secondary to short pedicles,circumferential disc bulge and hypertrophic changes of the facets andligaments especially on the right. Disc osteophytic changes result inmoderate right-sided neuroforaminal compromise. IMPRESSION: Moderate to severe spinal stenosis at L2-3, L3-4 and L4-5 asabove-described. Severe left-sided neuroforaminal compromise is noted atL3-4. If this radiology report contains a blank impression section, it is anincomplete radiology report. Please contact the interpreting radiologistor applicable radiology division as soon as possible to obtain thecompleted interpretation. Workstation ID: [id number] Kerri ROLAND MRI PROCEDURES Final Resul t * DXA Axial and TBS (06/30/2024 9:40 AM EST) Anatomical Region Laterality Modality Bone Densitometr y 06/30/2024 10:1 6 AM EST Impressions 06/30/2024 10:17 AM EST This patient has osteoporosis. Compared to the prior study, there has been a decrease in the BMD/T value of the spine and a decrease in the BMD /T value of the hip. Consider bone health evaluation and management by Endocrinology or Rheumatology. Thank you for the courtesy of this referral. If this radiology report contains a blank impression section, it is an incomplete radiology report. Please contact the interpreting radiologist or applicable radiology division as soon as possible to obtain the completed interpretation. Workstation ID: [id number] Narrative 06/30/2024 10:17 AM EST EXAM: BONE MINERAL DENSITY PROCEDURE: The bone mineral density (BMD) of the spine and proximal left femur was determined using an external X-ray source ([facility] [employer]). SITE: [facility] COMPARISON: Prior BMD of 2022 FINDINGS: L1: BMD 0.84gm/cm2 T-Score -1.4 Z-score: 1.1 prior BMD 0.90 Femoral neck: BMD 0.58gm/cm2 T-Score -2.5 Z-score: 0.1 Total hip: BMD 0.87 gm/cm2 T-Score -0.6 Z-score: 1.7 prior BMD 0.89 The World Health Organization (WHO) defines osteoporosis (as studied in post-menopausal women) as BMD with a T value of (-)2.5 or less at any site. Osteopenia is defined by a T value between (-)1.1 and (-)2.4. Trabecular bone score (TBS) L1-L4: TBS 1.27 Z-score: na (normal microarchitecture: >1.31; degraded: <1.24) In general, it is recommended that patients receive approximately 1000 mg of calcium daily, either from dairy products or supplements (including multiple vitamin). Patients should consider supplementing with vitamin D. Vitamin D recommendations should be discussed with Health Care Provider and measurement of vitamin D levels should be considered. Careful weight-bearing exercise is also useful in maintaining bone mass and to help protect against falls. Based on our precision data, a change of 1.5% in the spine or total hip is significant in the individual patient. Resulting Agency Comment [id number] Procedure Note Rito Kirk MD - 06/30/2024 EXAM: BONE MINERAL DENSITY PROCEDURE: The bone mineral density (BMD) of the spine and proximal leftfemur was determined using an external X-ray source ([employer]). SITE: [facility] COMPARISON: Prior BMD of 2022 FINDINGS: L1: BMD 0.84gm/cm2 T-Score -1.4 Z-score: 1.1 prior BMD 0.90 Femoral neck: BMD 0.58gm/cm2 T-Score -2.5 Z-score: 0.1 Total hip: BMD 0.87 gm/cm2 T-Score -0.6 Z-score: 1.7 prior BMD0.89 The World Health Organization (WHO) defines osteoporosis (as studied inpost-menopausal women) as BMD with a T value of (-)2.5 or less at anysite. Osteopenia is defined by a T value between (-)1.1 and (-)2.4. Trabecular bone score (TBS) L1-L4: TBS 1.27 Z-score: na (normal microarchitecture:>1.31; degraded: <1.24) In general, it is recommended that patients receive approximately 1000 mgof calcium daily, either from dairy products or supplements (includingmultiple vitamin). Patients should consider supplementing with vitamin D.Vitamin D recommendations should be discussed with Health Care Providerand measurement of vitamin D levels should be considered. Carefulweight-bearing exercise is also useful in maintaining bone mass and tohelp protect against falls. Based on our precision data, a change of 1.5% in the spine or total hip issignificant in the individual patient. IMPRESSION: This patient has osteoporosis. Compared to the prior study, there has ginger decrease in the BMD/T value of the spine and a decrease in the BMD /Tvalue of the hip. Consider bone health evaluation and management by Endocrinology orRheumatology. Thank you for the courtesy of this referral. If this radiology report contains a blank impression section, it is anincomplete radiology report. Please contact the interpreting radiologistor applicable radiology division as soon as possible to obtain thecompleted interpretation. Workstation ID: [id number] us Zac Castro MD IM DXA PROCEDURES Final Result * Comprehensive Metabolic Panel, Outside Lab (05/21/2023) Sodium 140 mmol/L Potassium 5.0 Chloride 103 Carbon Dioxide 21 Glucose 105 BUN 29 mg/dL Creatinine 1.02 mg/dL eGFR Non- 54 Calcium 9.5 mg/dL Total Protein 6.6 g/dL Albumin 4.3 g/dL Blood Structure of peripheral vein / Unknown 05/21/2023 us Unknown Provider LAB BLOOD ORDERABLES Final R esult from Last 3 Months or Most Recently Relevant to Health Maintenance Insurance [facility] Advance Directives Documents on File Type Date Recorded Patient [employer] Expl anation Health Care Proxy 09/10/2022 Health Care Proxy 09/10/2022 09/06/2022 Health Care Proxy 09/10/2022 Care Teams Experimental Rocketsled Mechanic Relationship Specialty Start Date End Date Zac Castro MD PCP - General Internal Medicine 03/27/21
--- OUTSIDE RECORDS SUMMARY | 2025-03-11 14:04 | XMS_ITS | Encounter Summary ---
Author Organization [facility] Address [address] [place] [address] Care Team Providers Care Associate Merchandise Planner Name Role Phone Zac Castro MD Primary Care Provider + Reason for Visit * Reason Onset Date Comments Actionable Finding 11/27/2023 Encounter Details Date Type Department Care Team (Late st Contact Info) Description 11/27/2023 Telephone [facility] - Actionable Findings [address] [place] [address] Yvette Galeano LPN Actionable Finding Social History Tobacco Use Types Packs/Day Years Used Date Smoking Tobacco: Never Smokeless Tobacco: Never Comments:: Comments No Sex and Gender Information Value Date Recorded Sex Assigned at Female 03/01/2023 3:04 PM EDT Legal Sex Female 3:41 AM EDT Gender Identity Female 03/01/2023 3:04 PM EDT Sexual Orientation Not on file documented as of this encounter Miscellaneous Notes * Telephone Encounter - Yvette Galeano LPN - 11/27/2023 1:10 PM EDT Actionable finding review of MRI Date of scan: 10/18/23 Location of scan: [facility] Actionable Findings performed a review of radiology result(s). Yvette Crews LPN at [phone] documented in this encounter Plan of Treatment Not on file documented as of this encounter Visit Diagnoses Not on filedocumented in this encounter Care Teams Associate Merchandise Planner Relationship Specialty Start Date End Date Zac Castro MD PCP - General Internal Medicine 03/27/21 documented as of this encounter
--- OUTSIDE RECORDS SUMMARY | 2025-03-11 14:04 | XMS_ITS | Encounter Summary ---
Author Organization [facility] Address [address] [place] [address] Care Team Providers Care Imaging Account Manager Name Role Phone Zac Castro MD Primary Care Provider [phone] [phone] Encounter Details Date Type Department Care Team (Late st Contact Info) Description 12/12/2021 Orders Only [facility] Pre-Admission Testing [address] [place] [address] Lisset Pérez NP Social History Tobacco Use Types Packs/Day Years Used Date Smoking Tobacco: Never Smokeless Tobacco: Never Comments Unknown Sex and Gender Information Value Date Recorded Sex Assigned at Not on file Legal Sex Female 6:56 PM EDT Gender Identity Not on file Sexual Orientation Not on file documented as of this encounter Miscellaneous Notes * Result Encounter Note - Lisset Pérez NP - 12/12/2021 12:01 PM EDT Calcium 10.9, GFR 48. CBC, PT/PTT normal. E-copy of labs sent to PCP. * Result Encounter Note - Lisset Pérez NP - 12/12/2021 12:01 PM EDT Obtaining previous EKG and stress test Hemoglobin A1c normal * Result Encounter Note - Lisset Pérez NP - 12/12/2021 12:01 PM EDT TSH normal * Result Encounter Note - Lisset Pérez NP - 12/12/2021 12:01 PM EDT ECG with left bundle branch block, obtaining EKG and stress test from her previous cardiology visit documented in this encounter Plan of Treatment Not on file documented as of this encounter Procedures * Due to [place] [employer] law, this organization might not be sharing negative HIV tests. Procedure Name Priority Date/Time Associated Diagnosis Comments EKG-TO BE READ & BILLED BY ADULT OR PEDIATRIC CARDIOLOGY Routine 12/12/2021 12:49 PM EDT Preoperative examination Primary osteoarthritis of right knee Hyperglycemia ACTIVATED PARTIAL THROMBOPLASTIN TIME (APTT), PLASMA Routine 12/12/2021 12:03 PM EDT Preoperative examination Primary osteoarthritis of right knee Hyperglycemia PROTHROMBIN TIME (PT) (INR), BLOOD Routine 12/12/2021 12:03 PM EDT Preoperative examination Primary osteoarthritis of right knee Hyperglycemia CBC INCLUDES DIFFERENTIAL AND PLATELET COUNT Routine 12/12/2021 12:03 PM EDT Preoperative examination Primary osteoarthritis of right knee Hyperglycemia THYROID STIMULATING HORMONE (TSH) WITH FREE T4 REFLEX, SERUM Routine 12/12/2021 12:03 PM EDT HEMOGLOBIN A1C Routine 12/12/2021 12:03 PM EDT Primary osteoarthritis of right knee Hyperglycemia VENIPUNCTURE Routine 12/12/2021 12:03 PM EDT Preoperative examination Primary osteoarthritis of right knee Hyperglycemia MRSA CULTURE SCREEN, NASAL ONLY Routine 12/12/2021 12:01 PM EDT Preoperative examination documented in this encounter Results * Due to [place] [employer] law, this organization might not be sharing negative HIV tests. * EKG-TO BE READ & BILLED BY ADULT OR PEDIATRIC CARDIOLOGY (12/12/2021 12:49 PM EDT) VENTRICULAR RATE 51 BPM MUS E EKG SYSTEM ATRIAL RATE 51 BPM MUSE EKG SYSTEM P-R INTERVAL 168 ms MUSE EK G SYSTEM QRS DURATION 150 ms MUSE EK G SYSTEM QT 496 ms MUSE EKG SYSTEM QTC 457 ms MUSE EKG SYSTEM P AXIS 60 degrees MUSE EKG SYSTEM R AXIS -54 degrees MUSE EKG SYSTEM T AXIS 103 degrees MUSE EKG SYSTEM EKG INTERPRETATION Sinus bradycardia Left axis deviation Left bundle branch block Abnormal ECG When compared with ECG of 26-AUG-2006 06:08, Left bundle branch block is now Present Confirmed by PETR VEGA ([id number]) on 12/13/2021 8:46:40 AM MUSE EKG SYSTEM 12/12/2021 12:4 9 PM EDT 12/13/2021 8:46 AM EDT Lisset Pérez NP CARDIOVASCULAR-WITH INBSKT RTG Final Result [facility] E[facility] SYSTEM * THYROID STIMULATING HORMONE (TSH) WITH FREE T4 REFLEX, SERUM (12/12/2021 12:03 PM EDT) TSH 0.70 0.40 - 4.50 mIU/L [facility] 12/12/2021 12:0 3 PM EDT 12/12/2021 4:04 PM EDT Lisset Pérez NP LABORATORY Final Result [facility] [address] [place] [address] * HEMOGLOBIN A1C (12/12/2021 12:03 PM EDT) Hemoglobin A1C 5.5 <5.7 % of total Hgb [facility] Comment: For the purpose of screening for the presence of diabetes: <5.7% Consistent with the absence of diabetes 5.7-6.4% Consistent with increased risk for diabetes (prediabetes) > or =6.5% Consistent with diabetes This assay result is consistent with a decreased risk of diabetes. Currently, no consensus exists regarding use of hemoglobin A1c for diagnosis of diabetes in children. According to [place] Diabetes Association (ADA) guidelines, hemoglobin A1c <7.0% represents optimal control in non- diabetic patients. Different metrics may apply to specific patient populations. Standards of Medical Care in Diabetes(ADA). Estimated Average Glucose 119 mg/dL (calc) [facility] 12/12/2021 12:0 3 PM EDT 12/12/2021 4:04 PM EDT Narrative Resulting Agency Comment [id number] Lisset Pérez NP LABORATORY Final Result Performing Organization Address [facility] de Phone Number [facility] [address] [place] [address] * ACTIVATED PARTIAL THROMBOPLASTIN TIME (APTT), PLASMA (12/12/2021 12:03 PM EDT) Thromboplastin Time 26 23 - 32 sec [facility] Comment: This test has not been validated for monitoring unfractionated heparin therapy. For testing that is validated for this type of therapy, please refer to the Heparin Anti-Xa assay (test code 59927). For additional information, please refer to http://[employer].PetroDE/faq/KEE465 (This link is being provided for informational/educational purposes only.) 12/12/2021 12:0 3 PM EDT 12/12/2021 4:04 PM EDT Narrative Resulting Agency Comment [id number] Lisset Pérez NP LAB SAME DAY RESULT Final Resul t Performing Organization Address [facility] de Phone Number [facility] [address] [place] [address] * PROTHROMBIN TIME (PT) (INR), BLOOD (12/12/2021 12:03 PM EDT) INR 0.9 [facility] Comment: Reference Range 0.9-1.1 Moderate-intensity Warfarin Therapy 2.0-3.0 Higher-intensity Warfarin Therapy 3.0-4.0 PT 9.7 9.0 - 11.5 sec [facility] Comment: For additional information, please refer to http://education.[employer]/faq/LQV564 (This link is being provided for informational/ educational purposes only.) 12/12/2021 12:0 3 PM EDT 12/12/2021 4:04 PM EDT Narrative Resulting Agency Comment [id number] Lisset Pérez [facility] SAME DAY RESULT Final Resul t Performing Organization Address [facility] de Phone Number [facility] [address] [place] [address] * CBC INCLUDES DIFFERENTIAL AND PLATELET COUNT (12/12/2021 12:03 PM EDT) WBC 7.3 3.8 - 10.8 Thousand/u L [facility] RBC 5.06 3.80 - 5.10 Million/uL [facility] Hemoglobin 14.9 11.7 - 15.5 g/dL [facility] Hematocrit 44.0 35.0 - 45.0 % [facility] MCV 87.0 80.0 - 100.0 fL [facility] MCH 29.4 27.0 - 33.0 pg [facility] MCHC 33.9 32.0 - 36.0 g/dL [facility] RDW 12.8 11.0 - 15.0 % [facility] PLT 213 140 - 400 Thousand/u L [facility] MPV 10.9 7.5 - 12.5 fL [facility] Neutrophils # 4117 1500 - 7800 cells/uL [facility] Lymphocytes # 2059 850 - 3900 cells/uL [facility] Monocytes # 642 200 - 950 cells/uL [facility] Eosinophils # 453 15 - 500 cells/uL [facility] Basophils # 29 0 - 200 cells/uL [facility] Neutrophils % 56.4 % [facility] Lymphocytes % 28.2 % [facility] Monocytes % 8.8 % [facility] Eosinophils % 6.2 % [facility] Basophils % 0.4 % [facility] 12/12/2021 12:0 3 PM EDT 12/12/2021 4:04 PM EDT Narrative Resulting Agency Comment [id number] Lisset Pérez [facility] SAME DAY RESULT Final Resul t Performing Organization Address [facility] Co de Phone Number [facility] [address] [place] [address] * (ABNORMAL) BASIC METABOLIC PANEL WITH (GFR) (12/12/2021 12:03 PM EDT) Glucose 94 65 - 99 mg/dL [facility] Comment:Fasting reference in terval Urea Nitrogen Blood (BUN) 23 7 - 25 mg/dL [facility] Creatinine 1.07(H) 0.60 - 0.88 mg/dL [facility] Comment: For patients >49 years of age, the reference limit for Creatinine is approximately 13% higher for people identified as -Japanese. EGFR 48(L) > OR = 60 mL/min/1. 73m2 [facility] GFR () 55(L) > OR = 60 mL/min/1. 73m2 [facility] BUN/Creatinine Ratio 21 6 - 22 (calc) [facility] Sodium 141 135 - 146 mmol/L [facility] Potassium 4.8 3.5 - 5.3 mmol/L [facility] Chloride 103 98 - 110 mmol/L [facility] Carbon dioxide 30 20 - 32 mmol/L [facility] Calcium 10.9(H) 8.6 - 10.4 mg/dL [facility] 12/12/2021 12:0 3 PM EDT 12/12/2021 4:04 PM EDT Narrative [facility] - 12/12/2021 8:59 PM EDT Please note that this estimated GFR does [...] needs for GFR calculation. Resulting Agency Comment [id number] us Lisset Pérez NP LABORATORY Final Result [facility] [address] [place] [address] * MRSA CULTURE SCREEN, NASAL ONLY (12/12/2021 12:01 PM EDT) Methicillin Resistant Staphylococcus Aureus Screen SEE NOTE [facility] Comment: MRSA CULTURE SCREEN Micro Number: [id number] Test Status: Final Specimen Source: Not given Specimen Quality: Adequate Result: No methicillin resistant Staphylococcus aureus (MRSA) isolated. 12/12/2021 12:0 1 PM EDT 12/12/2021 7:14 PM EDT Narrative Resulting Agency Comment [id number] us Lisset Pérez [facility]ORAT[facility] Final Result Performing Organization Address City/State/[facility] Co de Phone Number [facility] [address] [place] [address] documented in this encounter Visit Diagnoses Diagnosis Preoperative examination Preoperative examination, unspecified Primary osteoarthritis of right knee Primary localized osteoarthrosis, lower leg Hyperglycemia Other abnormal glucose documented in this encounter Care Teams Imaging Account Manager Relationship Specialty Start Date End Date Zac Castro MD [facility] [address] [place] [address] PCP - General Internal Medicine 03/31/10 documented as of this encounter
--- OUTSIDE RECORDS SUMMARY | 2025-03-11 14:04 | XMS_ITS | Encounter Summary ---
Author Organization [facility] Address [address] [place] [address] Care Team Providers Care Patternmaker Apprentice Wood Name Role Phone Zac Castro MD Primary Care Provider [phone] Reason for Visit * Reason Comments Prescription Assistance Encounter Details Date Type Department Care Team (Late st Contact Info) Description 2022 Telephone CALL CENTER [facility] [address] [place] [address] Froilan Ramos MD [address] [place] [address] Prescription Assistance Social History Tobacco Use Types Packs/Day Years Used Date Smoking Tobacco: Never Smokeless Tobacco: Never Comments Unknown Sex and Gender Information Value Date Recorded Sex Assigned at Not on file Legal Sex Female 6:56 PM EDT Gender Identity Not on file Sexual Orientation Not on file documented as of this encounter Miscellaneous Notes * Telephone Encounter - Shravan Arana - 2022 9:26 AM EST Patient requesting refill on oxycodone. Says she has two pills left. documented in this encounter Plan of Treatment Not on file documented as of this encounter Visit Diagnoses Not on filedocumented in this encounter Care Teams Patternmaker Apprentice Wood Relationship Specialty Start Date End Date Zac Castro MD [facility] [address] [place] [address] PCP - General Internal Medicine 03/31/10 documented as of this encounter
--- OUTSIDE RECORDS SUMMARY | 2025-03-11 14:04 | XMS_ITS | Clinical Summary ---
Author Organization [facility] Address [address] [place] [address] Care Team Providers Care Supervisor Car Installations Name Role Phone Zac Castro MD Primary Care Provider [phone] Allergies Active Allergy Reactions Criticality Noted Date Comments Atenolol Other 12/29/2007 FATIGUE Codeine Sulfate Maculopapular Rash,U rticarial Rash 07/30/2000 Hctz Electrolyte Disturbance 12/29/2007 Lisinopril Other 12/29/2007 LEG SWELLING Medications LEVOTHROID 150 MCG OR TABS Take 1 tablet by mouth daily 30 5 8 Active Additional Information Patient taking differently: 175 mcgOral, Reported on 07/19/2022 TRIAMTERENE-HCT Z 75-50 MG OR TABS Take 1 tablet by mouth daily 30 5 8 Active Atorvastatin Calcium 40 MG Tab None Entered 8 Active Losartan Potassium 100 MG Tab None Entered 8 Active Magnesium 100 MG Cap Take 1,000 mg by mouth 1 (one) time each day Active Multiple Vitamins-Minera ls (Multi Complete) Cap Take by mouth Ac tive B Complex-C (Vitamin B + C Complex) Tab Take by mouth Act miller Ascorbic Acid (Vitamin C) 100 MG Chew Tab Chew 1 tablet 3 (three) times a day Active Metoprolol Succinate (TOPROL-XL) 100 MG 24 hr tablet Take 100 mg by mouth 1 (one) time each day 2 Active Aspirin (ST ASAD) 81 MG EC tablet Take 81 mg by mouth Active Brimonidine Tartrate-Timolo l (COMBIGAN) 0.2-0.5 % ophthalmic solution PLACE 1 DROP INTO BOTH EYES TWICE DAILY 2 Active Cholecalciferol (EQL Vitamin D3) 50 MCG (2000 UT) capsule Take 2,000 Units by mouth 1 (one) time each day Active Latanoprost (XALATAN) 0.005 % ophthalmic solution 1 drop every night Active Aspirin Low Dose 81 MG chewable tablet Chew 81 mg 2 (two) times a day 3 Active Ferrous Gluconate (FERGON) 324 (38 Fe) MG tablet Take 1 tablet by mouth 2 (two) times a day with meals 3 Active Active Problems Problem Noted Date Diagnosed Date Hyperlipidemia 08/06/2013 Chronic kidney disease, stage III (moderate) Overview (12/10/2021): Reaplcing Diagnoses that were inactivated after 03/16/2020 regulatory diagnosis import. Hypothyroidism 08/06/2013 Osteoarthritis 08/06/2013 Immunizations Immunization Administration Dates Next Due Flu Vac Employee 03/31/2010 Flu Vac Purchased 36 mos and older 03/18/2009, Influenza,seasonal,trivalent ,preserva tive (FLUZONE MDV) 04/11/2007,04/12/2006,05/06/2005,2003 OPV, Trivalent (Admin Before 09/15/2015) 04/14/1990 PPD/TST (Tuberculin Skin Test) 06/23/2001,2000 PPV23 (Pneumovax) 07/05/2002 Td (adult), adsorbed 08/13/2005,04/14/1996,04/14 Family History Medical History Relation Name Comments Heart Disorder Father [place] Arthritis/Joint disorder Maternal grandmother Arthritis/Joint disorder Mother Stroke Paternal grandfather Relation Name Status Comments Father (Age 70) Maternal grandmother Mother Paternal grandfather Social History Tobacco Use Types Packs/Day Years Used Date Smoking Tobacco: Never Smokeless Tobacco: Never Tobacco Cessation:Counseling Given: Not Answered Intimate Partner Violence Answer Date R ecorded Fear of Current or Ex-Partner Not on file Emotionally Abused Not on file 01/29/2023 Physically Abused Not on file 01/29/2023 Sexually Abused Not on file 01/29/2023 Feel Safe at Home Not on file 01/29/2023 Comments Unknown Sex and Gender Information Value Date Recorded Sex Assigned at Not on file Legal Sex Female 6:56 PM EDT Gender Identity Not on file Sexual Orientation Not on file Last Filed Vital Signs Vital Sign Reading Time Taken Comments Blood Pressure 94/59 07/19/2022 10:18 AM EST Pulse 75 07/19/2022 10:18 AM EST Temperature 36.2 C (97.1 F) 07/19/2022 10:18 AM EST Respiratory Rate - - Oxygen Saturation - - Inhaled Oxygen Concentration - - Weight 78.3 kg (172 lb 9.6 oz) 07/19/2022 10:18 AM EST Height 163.2 cm (5' 4.25 ) 07/19/2022 10:[address] Body Mass Index 29.4 07/19/2022 10:18 AM EST Plan of Treatment Health Maintenance Due Date Last Done Comments Zoster (Shingrix) (1 of 2) 08/15/1987 Pneumococcal 50+ years (2 of 2 - PCV) 07/05/2003 07/05/2002 DTaP/Tdap/Td (1 - Tdap) 2005 08/13/19 06, 04/14/1996, 04/14/1990 RSV (1 - 1-dose 75+ series) 2012 COVID-19 Vaccine ( - season) 2025 Influenza (#1) 2025 03/31/2010, 08/2008, 04/02/2008, Additional history exists PPD Discontinued 06/25/2001, 01/2002, 06/23/2001, Additional history exists Pap Smear Discontinued 07/05/2002, 06/26/1999 Bone Density Completed 02/18/2006, 01/16, 07/07/2001 LDL Cholesterol Discontinued 08/26/2006, 02/14, 11/26/2005, Additional history exists Mammogram/Breast Imaging Discontinued 008, 12/03/2005, 11/27/2004, Additional history exists Eye/Retina Exam Discontinued 06/22/2018, 12/2018, 06/22/2018, Additional history exists EKG Discontinued 12/12/2021, 08/14, 06/20/2005, Additional history exists HPV Vaccine (No Doses Required) Completed Hep A Aged Out No longer eligi ble based on patient's age to complete this topic Hep B Aged Out No longer eligi ble based on patient's age to complete this topic Hib Aged Out No longer eligi ble based on patient's age to complete this topic Meningococcal ACWY Aged Out No longer eligible based on patient's age to complete this topic Zoster (Zostavax) Discontinued Procedures * Due to [place] [employer] law, this organization might not be sharing negative HIV tests. Procedure Name Priority Date/Time Associated Diagnosis Comments EKG-TO BE READ & BILLED BY ADULT OR PEDIATRIC CARDIOLOGY Routine 12/12/2021 12:49 PM EDT Preoperative examination Primary osteoarthritis of right knee Hyperglycemia MAMMO BILATERAL ROUTINE Routine 02/08/2008 10:07 AM EDT LIPID PROFILE Routine 08/26/2006 9:24 AM EDT DEXA BONE DENSITY STUDY Routine 02/18/2006 9:52 AM EDT PAP SMEAR Routine 07/05/2002 12:02 PM EST SKIN TEST; TUBERCULOSIS, INTRADERMAL 0.1ML 06/25/2001 12:00 AM EST Screening Examination for Pulmonary Tuberculosis from Last 3 Months or Most Recently Relevant to Health Maintenance Results * Due to [place] [employer] law, this organization might not be sharing [...] 9 PM EDT 12/13/2021 8:46 AM EDT us Lisset Cassiraghav CUSTOMER SUPPORT EXECUTIVE CARDIOVASCULAR-WITH INBSKT RTG Final Result [facility] EKG SYSTEM * MAMMO BILATERAL ROUTINE (02/08/2008 10:07 AM EDT) RADIOLOGY REPORT [address] [address] __ DIAGNOSTIC IMAGING Name: OBIE GIBBS Acct Num: [id number] Age: 72 MR Num: [id number] : 1935 Sex: F Phone Num: [phone] Film Num: [id number] Stay Type: O/P Room: Admit Phys:ROSELINE Ordering Phys: Admit Date:02/08/08 Discharge Date:02/08/08 Unsigned Transcriptions are Preliminary reports and do not represent medical or legal documents. __ MAMMO BILATERAL ROUTINE [id number] COMPLETE:02/08/08 10:07 [facility] [id number] ==>MAMMO ORDER<== COMPLETE:02/08/08 10:07 [facility] [id number] REASON FOR PROCEDURE: CYSTIC DISEASE Tx date: 02/08/08 12:58 Tx by: PL Signing Phys: DXB Dictating Phys: Ford Angulo MD Radiologist BILATERAL MAMMOGRAM: Standard MLO and CC views are obtained and compared to a previous study of 12/03/05. A total of six images are taken. Benign calcifications are again seen in the central left breast. Scattered fibroglandular densities are unchanged. No suspicious clusters of microcalcification s or evidence of architectural distortion is seen. IMPRESSION: STABLE INTERVAL EXAMINATION. ROUTINE ANNUAL FOLLOW UP IS SUGGESTED. BIRADS CATEGORY 2, BENIGN FINDING. Report Reviewed and Electronically Signed by: Ford Angulo MD Radiologist Copy for: File copy printer # [id number] Copy for: ROSELINE TRINH via fax Copy for: 606 MEDICAL RECORDS Anatomical Region Laterality Modality Other 02/08/2008 10:0 7 AM EDT Narrative 02/08/2008 1:22 PM EDT Reason for Study/History: CYSTIC DISEASE TEST(S) PROCESSED BY [facility] Zac Castro MD [facility] Final Res ult * (ABNORMAL) LIPID PROFILE (08/26/2006 9:24 AM EDT) CHOLESTEROL, TOTAL 193 0 - 200 mg/dL [facility] (CLIA# [id number]) TRIGLYCERIDES 228(H) 30 - 200 mg/dL [facility] (CLIA# [id number]) HDL-CHOLESTEROL 48 35 - 60 mg/dL [facility] (CLIA# [id number]) LDL Cholesterol, Direct 118 0 - 130 mg/dL [facility] (CLIA# [id number]) VLDL 46 [facility] (CLIA# [id number]) CHD RELATIVE RISK RATIO (TOTAL/HDL) 4.0 [facility] (CLIA# [id number]) Comment: INTERPRETATION OF CARDIAC RISK The CHD Risk is based on the Total Cholesterol/AHDL Ratio. Other factors affect CHD such as hypertension, smoking, diabetes, severe obesity, and premature CHD. T.Chol./HDL Ratio MEN WOMEN 1/2 AVG. RISK 3.4 3.3 AVG. RISK 5.0 4.4 2 X AVG. RISK 9.6 7.1 3 X AVG. RISK 23.4 11.0 08/26/2006 9:24 AM EDT 08/26/2006 9:24 AM EDT us Anjelica Fagan MD LABORATORY Final Res ult [facility] (CLIA# [id number]) [address] [place] [address] * DEXA BONE DENSITY STUDY (02/18/2006 9:52 AM EDT) RADIOLOGY REPORT [address] [address] __ DIAGNOSTIC IMAGING Name: OBIE GIBBS Acct Num: [id number] Age: 70 MR Num: [id number] : 1935 Sex: F Phone Num: [phone] Film Num: [id number] Stay Type: O/P Room: Admit Phys:REALDY Ordering Phys: Admit Date:02/18/06 Discharge Date: 02/18/06 Unsigned Transcriptions are Preliminary reports and do not represent medical or legal documents. __ DEXA BONE DENSITY STUDY [id number] COMPLETE:02/18/06 9:52 PAL [id number] ==>XRAY ORDER<== COMPLETE:02/18/06 9:52 JOEL [id number] REASON FOR PROCEDURE: OSTEOPOROSIS Reviewed and Electronically Signed by: MIKE FINLEY MD RADIOLOGIST Tx date: 02/18/06 11:43 Tx by: Signing Phys: NM BONE DENSITOMETRY. The BMD of the total lumbar spine is 0.913 grams per squared cm. with a T score of 1.2 placing it in the osteopenia category of the WHO classification, with an increased fracture risk. The BMD of the total hip is 0.907 grams per squared cm. with a T score of 0.3 and a Z score of 1.1 placing it in the normal WHO classification, with no increased fracture risk, however Chapo triangle has a T score of 2.5 placing it in the osteoporosis category with a high fracture risk. Dictating Phys: NM Copy for: File copy printer # [id number] Copy for: MAX VALVERDE via modem Copy for: 604 MEDICAL RECORDS [facility] (CLIA# [id number]) Anatomical Region Laterality Modality Other 02/18/2006 9:52 AM EDT Narrative 02/18/2006 9:52 AM EDT Reason for Study/History: OSTEOPOROSIS TEST(S) PROCESSED BY [employer] Anjelica Fagan MD [facility] Final Res ult * PAP SMEAR (07/05/2002 12:02 PM EST) PAP SOURCE [facility] (CLIA# [id number]) Comment:None given PAP NUMBER OF SLIDES RECEIVED 1 [facility] ([facility]# [id number]) PAP CLINICAL HISTORY [facility] (CLIA# [id number]) Comment:Hysterectomy [facility]EN [facility] (CLIA# [id number]) Comment:Satisfactory specime n for Cytologic evaluation. INTERPRETATION/RESUL T - PAP [facility] (CLIA# [id number]) Comment:NEGATIVE FOR INTRAEP ITHELIAL LESION OR MALIGNANCY PAP PATHOLOGY GROUP [facility] (CLIA# [id number]) Comment: Screening performed at [facility], [place] [address] 07/05/2002 12:0 2 PM EST 07/05/2002 12:02 PM EST Anjelica Fagan MD PATHOLOGY Final Res ult [facility] (CLIA# [id number]) [address] [place] [address] from Last 3 Months or Most Recently Relevant to Health Maintenance Insurance [facility] [employer]AN [employer] [place] Care Teams Supervisor Car Installations Relationship Specialty Start Date End Date Zac Castro MD [facility] [address] [place] [address] PCP - General Internal Medicine 03/31/10
--- OUTSIDE RECORDS SUMMARY | 2025-03-11 14:04 | XMS_ITS | Clinical Summary ---
Author Organization [facility] Facility Address [address] [address] Care Team Providers Care Floor Press Operator Name Role Phone Zac Castro MD Primary Care Provider Un available Allergies Active Allergy Reactions Criticality Noted Date Comments Atenolol Other (see comments) 12/29/2007 Other reaction(s): Other FATIGUE FATIGUE Codeine Rash Low 07/30/2000 Other reaction(s): Maculopapular Rash, Urticarial Rash Hydrochlorothiazide Other (see comments) 12/29/2007 Lisinopril Other (see comments) 12/29/2007 Other reaction(s): Other LEG SWELLING LEG SWELLING Medications bumetanide (BUMEX) 0.5 MG tablet 1 tablet 1 (one) time each day 09/16/2022 Active carvedilol (COREG) 25 MG tablet Take 12.5 mg by mouth in the morning and 12.5 mg in the evening. 10/01/2022 Active levothyroxine (SYNTHROID, LEVOTHROID) 175 MCG tablet Take 175 mcg by mouth 1 (one) time each day 10/20/2022 Active losartan (COZAAR) 50 MG tablet Take 50 mg by mouth 1 (one) time each day 09/16/2022 Active spironolactone (ALDACTONE) 25 MG tablet Take 25 mg by mouth 1 (one) time each day 10/01/2022 Active atorvastatin (LIPITOR) 40 MG tablet Take 40 mg by mouth 1 (one) time each day 09/27/2022 Active Dapagliflozin Propanediol (Farxiga) 10 MG tablet Take 5 mg by mouth 1 (one) time each day in the morning Active Magnesium 250 MG tablet Take 1 tablet by mouth 1 (one) time each day Active Multiple Vitamin (multivitamin) capsule Take 1 capsule by mouth 1 (one) time each day Active B Complex-C (SUPER B COMPLEX PO) Take 1 capsule by mouth 1 (one) time each day Active Calcium-Magnesiu m-Vitamin D (CALCIUM 1200+D3 PO) Take by mouth Active aspirin (ST ASAD) 81 MG EC tablet Take 81 mg by mouth 1 (one) time each day Active ibuprofen (ADVIL,MOTRIN) 100 MG/5ML suspension Take 400 mg by mouth in the morning and 400 mg in the evening. Active Active Problems Problem Noted Date Diagnosed Date Hypertensive chronic kidney disease with stage 5 chronic kidney disease or end stage renal disease 04/11/2014 Chronic kidney disease stage 3 08/06/2013 Overview (12/04/2022): Reaplcing Diagnoses that were inactivated after 03/16/2020 regulatory diagnosis import. Reaplcing Diagnoses that were inactivated after 03/16/2020 regulatory diagnosis import. Resolved Problems Problem Noted Date Diagnosed Date Resolved Date Hypothyroidism 08/06/2013 12/04/2022 Osteoarthritis 08/06/2013 12/04/2022 Immunizations Immunization Administration Dates Next Due Influenza TIV (IM) 03/31/2010 Influenza Vaccine, Quadrival ent, Adjuvanted 03/18/2009,04/02/2008 Influenza, Unspecified 04/11/2007,2005,05/06/2005,07/12 OPV 04/14/1990 PPD Test 06/23/2001,07/21/2000 Pneumococcal Polysaccharide 07/05/2002 Td 08/13/2005,04/14/1996,04/14/1990 Family History Medical History Relation Comments Heart disease Mother Hypertension Mother Relation Status Comments Mother Social History Tobacco Use Types Packs/Day Years Used Date Smoking Tobacco: Never Smokeless Tobacco: Never Tobacco Cessation:Counseling Given: Not Answered Alcohol Use Standard Drinks/Week Comments Never 0 (1 standard drink = 0.6 oz pur e alcohol) Comments Unknown Sex and Gender Information Value Date Recorded Sex Assigned at Not on file Legal Sex Female 4:42 PM EST Gender Identity Not on file Sexual Orientation Not on file Last Filed Vital Signs Vital Sign Reading Time Taken Comments Blood Pressure 108/68 12/05/2022 2:08 PM EDT Pulse - - Temperature - - Respiratory Rate - - Oxygen Saturation - - Inhaled Oxygen Concentration - - Weight 76.7 kg (169 lb) 12/05/2022 2:08 PM EDT Height 157.5 cm (5' 2 ) 12/05/2022 2:08 PM EDT Body Mass Index 30.91 12/05/2022 2:08 PM EDT Plan of Treatment Health Maintenance Due Date Last Done Comments Pneumococcal Vaccine: 50+ Years (2 of 2 - PCV) 07/05/2003 07/05/2002 Influenza Vaccine (#1) 2025 0, 03/18/2009, 04/02/2008, Additional history exists Pneumococcal Vaccine: Peds (0 to 5 Years) and At-Risk Patients (6 to 49 Years) Discontinued 07/05/2002 Hepatitis B Vaccine Aged Out No longe r eligible based on patient's age to complete this topic Insurance [employer] [place] [id number] [employer] Care Teams Floor Press Operator Relationship Specialty Start Date End Date Zac Castro MD PCP - General Internal Medicine 12/05/22
--- OUTSIDE RECORDS SUMMARY | 2025-03-11 14:04 | XMS_ITS | Encounter Summary ---
Author Organization [facility] Address [address] [place] [address] Care Team Providers Care Wardrobe Consultant Name Role Phone Zac Castro MD Primary Care Provider [phone] Encounter Details Date Type Department Care Team (Late st Contact Info) Description 11/29/2021 Telephone [facility]. Ophthalmology [address] [place] [phone] Martin Boswell MD [address] [place] [id number] Social History Tobacco Use Types Packs/Day Years Used Date Smoking Tobacco: Never Smokeless Tobacco: Never Comments Unknown Sex and Gender Information Value Date Recorded Sex Assigned at Not on file Legal Sex Female 6:56 PM EDT Gender Identity Not on file Sexual Orientation Not on file documented as of this encounter Miscellaneous Notes * Telephone Encounter - Aniyah Cramer - 12/08/2021 8:02 AM EDT I have routed a letter to you for review. Please make changes if necessary, and return for mailing. * Telephone Encounter - Martin Boswell MD - 12/07/2021 3:18 PM EDT Aniyah, Can you pls leave a message with Dr. Gomez's office, that we have been trying to get this pt in, you have called multiple times, and are sending a letter? Thx, EC * Telephone Encounter - Aniyah Cramer - 12/01/2021 12:29 PM EDT Tried to call both numbers. Mobile number picked up twice, but hung up. Home number voicemail not set up. Unable to reach letter sent. * Telephone Encounter - Maichang - 11/30/2021 4:04 PM EDT Hey PSS Team! Can someone please contact this patient and get her in within the next week WITH ANY PROVIDER for HVF/DFE/OCT/Pachs? She needs to be seen! Thank you so much! * Telephone Encounter - Martin Boswell MD - 11/30/2021 9:14 AM EDT I spoke with Dr. 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 Katarzyna, can we get her in soon to see me, BD or any provider? She likely needs med's DEONNA. Thx, EC * Telephone Encounter - Ashley Rangel - 11/29/2021 2:[address] Gabi Gomez Do., called to speak with a nurse in regards to pt. previous visits. Pt. Is currently at her office. PH: [phone]. Please advise. documented in this encounter Plan of Treatment Not on file documented as of this encounter Visit Diagnoses Not on filedocumented in this encounter Care Teams Wardrobe Consultant Relationship Specialty Start Date End Date Zac Castro MD [facility] [address] [place] [address] PCP - General Internal Medicine 03/31/10 documented as of this encounter
--- OUTSIDE RECORDS SUMMARY | 2025-03-11 14:04 | XMS_ITS | Encounter Summary ---
Author Organization [facility] Address [address] [place] [address] Care Team Providers Care Top Case Assembler Name Role Phone Zac Castro MD Primary Care Provider [phone] Encounter Details Date Type Department Care Team ([facility] st Contact Info) Description 01/16/2022 Orders Only [facility] Orthopedic Surgery [address] [address] Froilan Ramos MD [address] [place] [address] [place] [id number] Social History Tobacco Use Types Packs/Day Years Used Date Smoking Tobacco: Never Smokeless Tobacco: Never Comments Unknown Sex and Gender Information Value Date Recorded Sex Assigned at Not on file Legal Sex Female 6:56 PM EDT Gender Identity Not on file Sexual Orientation Not on file documented as of this encounter Plan of Treatment Not on file documented as of this encounter Results * Due to [place] state law, this organization might not be sharing negative HIV tests. * XR KNEE ORTHO - RT (DX: KNEE PAIN *NO INJURY* M25.561/ 719.46)(AGE>=35, CAN WEIGHT-BEAR) FC (01/24/2022 9:39 AM EDT) Anatomical Region Laterality Modality LOWER EXTREMITY Radiographic Sarah ging 01/25/2022 9:25 PM EDT Narrative 01/25/2022 9:25 PM EDT CONTRAST: AP view of the knees in the standing position with 2 views of the right knee. Comparison 12/28/2021. Findings: There is a right total knee arthroplasty. No hardware complications are identified. There is ill-defined soft tissue swelling with a possible joint effusion. On the left mild lateral and advanced medial compartment DJD. Impression: No definite hardware complications are seen. Procedure Note Alexander Reaves MD - 01/25/2022 CONTRAST: AP view of the knees in the standing position with 2 views of the rightknee. Comparison 12/28/2021. Findings: There is a right total knee arthroplasty. No hardware complications are identified. There is ill-defined soft tissue swelling with a possiblejoint effusion. On the left mild lateral and advanced medial compartment DJD. Impression: No definite hardware complications are seen. us Froilan Ramos MD IMG XRAY NO CONTRAST ORDERABL ES Final Result documented in this encounter Visit Diagnoses Not on filedocumented in this encounter Care Teams Top Case Assembler Relationship Specialty Start Date End Date Zac Castro MD [facility] [address] [place] [address] PCP - General Internal Medicine 03/31/10 documented as of this encounter
--- OUTSIDE RECORDS SUMMARY | 2025-03-11 14:04 | XMS_ITS | Encounter Summary ---
Author Organization [facility] Address [address] [place] [address] Care Team Providers Care Metal Mover Name Role Phone Zac Castro MD Primary Care Provider [phone] Reason for Visit * Reason Comments Prescription Assistance Encounter Details Date Type Department Care Team ([facility] st Contact Info) Description 01/07/2022 Telephone CALL [facility] [address] [place] [id number] Froilan Ramos MD [address] [place] [phone] Prescription Assistance Social History Tobacco Use Types Packs/Day Years Used Date Smoking Tobacco: Never Smokeless Tobacco: Never Comments Unknown Sex and Gender Information Value Date Recorded Sex Assigned at Not on file Legal Sex Female 6:56 PM EDT Gender Identity Not on file Sexual Orientation Not on file documented as of this encounter Miscellaneous Notes * Telephone Encounter - Taz Banegas LVN LPN - 01/08/2022 1:20 PM EDT Pt aware Rx sent * Telephone Encounter - Lew Antunez - 01/08/2022 1:00 PM EDT Pt calling back to find out the status of her rx refill request. Would like rx sent to [facility] in [place], [place]. Would like a call when rx if filled. * Telephone Encounter - SumitShravan - 01/07/2022 2:22 PM EDT Patient calling to say that she is almost out of oxycodone and would like a refill. documented in this encounter Plan of Treatment Not on file documented as of this encounter Visit Diagnoses Not on filedocumented in this encounter Care Teams Metal Mover Relationship Specialty Start Date End Date Zac Castro MD [facility] [address] [place] [address] PCP - General Internal Medicine 03/31/10 documented as of this encounter
--- OUTSIDE RECORDS SUMMARY | 2025-03-11 14:05 | XMS_ITS | Patient Health Record ---
Author Organization [facility] Address [address] [facility] [address] [place] [address] Care Team Providers Care Dial Maker Name Role Phone Gloria LEDESMA, Zac Primary Care Provider Abram Escudero M.D, M.P.H, Suzy Unavailable Allergies Allergen (clinical drug ingredient) Drug/Non Drug Allergy documented on EMR Reaction Allergy Type Onset Date Status acetaminophen / codeine Acetaminophen-Co deine Sensitivities will not take Drug Allergy Active Reason For Referral Reason [id number] Referring Provider First Name Zac Referring Provider Last Name Gloria Referred Organization [facility] Referred Provider Suzy Escudero Referred Address [address] [facility] [facility],[address], Referred Provider Specialty Otology, Lar yngology, Rhinology Referral Priority Routine Reason [id number] Referring Provider First Name Zac Referring Provider Last Name Gloria Referred Organization [facility] Referred Provider Malini Parry Referred Address [address] [facility] [facility], [place],[address], Referred Provider Specialty Audiologists Referral Priority Routine Medications Medication SIG (Take, Route, Frequency, Duration) Notes Start Date End Date Status Atorvastatin Calcium 40mg once a day *Please review and pick correct strength-formulatio n from Medispan options. If intended option is not shown, discontinue and re-order from Quick Search* Active Advil 200 MG 1 tab(s) orally every 6 hours as needed Active Valsartan 320 mg Pt states she takes 80 mg *Please review and pick correct strength-formulatio n from Medispan options. If intended option is not shown, discontinue and re-order from Quick Search* Active Magnesium *Please review a nd pick correct strength-formulatio n from Medispan options. If intended option is not shown, discontinue and re-order from Quick Search* Active Multivitamin *Please review a nd pick correct strength-formulatio n from Medispan options. If intended option is not shown, discontinue and re-order from Quick Search* Active Metoprolol Succinate ER 100 MG ; Duration: 30 Active Levothyroxine Sodium 125 MCG 1 tab(s) orally once a day 12/15/2017 Active Aspirin *Please review a nd pick correct strength-formulatio n from Medispan options. If intended option is not shown, discontinue and re-order from Quick Search* Active Fish Oil *Please review a nd pick correct strength-formulatio n from Medispan options. If intended option is not shown, discontinue and re-order from Quick Search* Active Super B-Complex *Please review a nd pick correct strength-formulatio n from Medispan options. If intended option is not shown, discontinue and re-order from Quick Search* Active Calcium-Vitamin D *Please review and pick correct strength-formulatio n from Medispan options. If intended option is not shown, discontinue and re-order from Quick Search* Active Social History Tobacco Use: Social History Observation Description Date Details (start date - stop date) Never Smoker NA - NA Smoking: Question Answer Notes Are you a : Never Smoker Problems Problem Type SNOMED Code ICD Code Onset Dates Problem Status W/U Status Risk Notes Problem Sensorineural hearing loss, bilateral (525887136) Bilateral sensorineural hearing loss (H90.3) Active confirmed Problem Lightheadedness (526813504) Lightheadedness (R42) Active confirmed Plan Of Treatment No Information Insurance Providers Payer Name Payer Address Payer Phone Subscriber Number Group Number Insured Name Patient Relationship to Insured Coverage Start Date Coverage End Date Medicare Plus HMO [address] [place] [phone] [id number] Chey Ragland Self - patient is the insured Medical (General) History Medical History History ICD Code Hypertension High Cholesterol Hypothyroidism Dizziness Surgical History Surgery Date(Month/Year) Hysterectomy Hospitalization History Reason Date(Month/Year) Hysterectomy
== END 2025-03-11 14:46 | disposition home or self-care (01) ==
LOC: HO.HNS 12:33
PROVIDERS: PCP Internal Medicine; Visit Provider Neurological Surgery
DX: M48.062 Spinal stenosis, lumbar region with neurogenic claudication (principal)
CPT/HCPCS: 99204

== ENCOUNTER → 2025-03-11 13:16 | Outpatient (BNV) | payer MEDICARE, SELFPAY | PROVIDERS: PCP Internal Medicine; Visit Provider Radiology Diagnostic Radiology | DX: M47.816 Spondylosis without myelopathy or radiculopathy, lumbar region (principal) | CPT/HCPCS: 72110 ==

== ENCOUNTER 2025-05-03 08:26 | Inpatient (IN) | payer MEDICARE, SELFPAY ==
[2025-04-19 12:20] VITALS: BP 177/81; PULSE 62; RESP 20; O2SAT 98; BMI 30.7
[2025-05-03] VITALS (10 sets, daily range): BP systolic 143–184; BP diastolic 52–81; PULSE 57–78; RESP 10–20; TEMP 36.1–36.6; O2SAT 94–99; BMI 30.5
--- NOTE | ~2025-05-03 | FL_ITS ---
EXAMINATION: XR FLUOROSCOPY WITH IMAGES CLINICAL INFORMATION: L3-4, L4-5 decompression, left. Posterior fusion L3 COMPARISON: X-ray 03/11/2025 TECHNIQUE: Fluoroscopy time: 54 seconds DAP: 16 mGycm2 Images: 3 FINDINGS: Fluoroscopy provided in the operating room. Intraoperative images, with transpedicular screws at L3, L4, L5, with stabilizing thanh.. FL/FL guidance in OR IMPRESSION: Fluoroscopy provided in the operating room. See operative report for details. Electronically signed by: Dario Obrien MD 05/03/2025 02:19 PM JEANETTE
[2025-05-03] MEDS: Lactated Ringers 1,000 ML 50 ML IVCONT (09:09)
--- NOTE | 2025-05-03 10:29 | MHC.SHP ---
Pre-Procedural Eval Section A - 24 Hr Update-Section A only Date of Service: 05/03/25 The patient is an INPATIENT: Yes Section B - Complete if H&P > 30 days Chief Complaint: s/p L-3 - 5 decompression with posterior fusion Allergies: Allergies Allergy/AdvReac Type Severity Reaction Status Date / Time bee pollen (bee stings) Allergy Severe Anaphylaxis Verified 04/19/25 12:16 codeine AdvReac Intermediate Drowsy/conf Verified 04/19/25 12:16 usion Review of Systems Sugical H&P ROS: Negative: Constitution, Cardiovascular, Respiratory, Neurological, Psychiatric, Hem-Onc, Allergic/Immunologic, Gastrointestinal, Genitourinary, Musculoskeletal, Integumentary, Endocrine and Eyes/Ears/Nose/Throat Exam Surgical H&P Exam: Normal: HEENT, Normal: Heart, Normal: Lungs, Normal: Extremities, Normal: Abdomen, Normal: Skin and Normal: Neurological (awake, alert) Plan I have reviewed the history and physical and performed a pertinent physical examination on my patient. No changes have occurred unless specified. left L3-4 and L4-5 decompression with a L3 and L4 foraminotomy; posterior segmental instrumented fusion L3-L5 Time Spent With Patient Time: Total time managing care of this patient today __5__ minutes.
--- NOTE | 2025-05-03 10:32 | PHA.MEDREC ---
Addendum entered by Twan Barrientos RPh 05/03/25 10:53: Reviewed by [facility] Original Note: Pharmacy Consult ? Medication Reconciliation Pharmacy has completed the medication reconciliation. Spoke with pt and she confirmed her medications. Pt confirmed she is taking an Amoxicillin 875-125mg regimen BID for 10 days; pt started that last Friday (04/26), she takes an Aspirin 81mg tabs once daily but stopped it about 1 week ago due to the surgery today, she states she still has and uses Brimonidine-Timolol eye drops 2 drop both eyes BID (LF 01/22 for 30 days) and Lumigan eye drops 1 drop each eye at bedtime (LF 02/20 for 30), she stopped the Spironolactone yesterday for the surgery today and pt taking Calcium, Magnesium and Vitamin D3 tabs but doesn't remember the dose of them at this time. Pt confirmed she is using the Levothyroxine 100mcg tabs once daily; claims shows 150mcg last filled 04/30 for 90 days; spoke with pt son (Rito [phone]) and he was able to confirm pt is taking Levothyroxine 100mg once daily and states pharmacy fills other doses (125mcg and 150mcg) but pt only taking 100mcg once daily at this time.
--- NOTE | 2025-05-03 11:02 | HO.ANESPROP2 ---
Documented by User: Katarzyna Valdez NP 04/22/25 12:21 HPI - Anesthesia Eval Consult details Narrative: 89yo F for Left Left L3-4, L4-5 Decompression and posterior fusion @ L3-5, 05/10/25 Cardiac optimized. Follows [facility] for CHF, LBBB. Stable at 04/18/25 office visit. No recent illness No CP/SOB with house work, groceries No edema PMFSH Active Problems Active Problems: All Active Problems Lumbar stenosis with neurogenic claudication (Acute) Past Medical History Medical History (Updated 04/19/25 @ 12:19 by Rossy Mccain RN) Macular degeneration Glaucoma CHF (congestive heart failure) CKD (chronic kidney disease) stage 3, GFR 30-59 ml/min LBBB (left bundle branch block) Osteopenia Osteoporosis Hypothyroid Elevated cholesterol HTN (hypertension) Borderline diabetes Family History Family history of problems with anesthesia: No Surgical History Surgical History (Updated 04/19/25 @ 12:14 by Rossy Mccain RN) Hx of bilateral cataract extraction Hx of oral surgery Hx of tonsillectomy H/O colonoscopy History of total bilateral knee replacement History of total abdominal hysterectomy and bilateral salpingo-oophorectomy History of Problems with Anesthesia: No Social History Social History Household Members Other:: son Are you a primary reproductive healthcare assistant to a significant other at home: No Do you presently have visiting nurse or other home services: No Comment: occasionally Patient Tobacco Use Status: Never used Tobacco Use of substances other than those prescribed or required for medical reasons: No Have you been hit, kicked, punched, or otherwise hurt by someone within the past year? If so, by whom?: No Spiritual Healthcare Practices: no [facility] Healthcare Practices: no Cultural Healthcare Practices: no Are you DNR?: No Advance Directives: No (son primary contacr) Advance Directives on File: No Meds Allergies Allergy/AdvReac Type Severity Reaction Status Date / Time bee pollen (bee stings) Allergy Severe Anaphylaxis Verified 04/19/25 12:16 codeine AdvReac Intermediate Drowsy/conf Verified 04/19/25 12:16 usion Home Medications ?Medication ?Instructions ?Recorded ?Confirmed ?Last Taken ?Type aspirin 81 mg tablet,delayed 81 mg PO BID 04/18/25 05/03/25 1 Week Ago History release ~04/26/25 atorvastatin 40 mg tablet 40 mg PO DAILY 04/18/25 05/03/25 05/02/25 History bimatoprost 0.01 % eye drops 1 drp ophthalmic (eye) BEDTIME 04/18/25 05/03/25 05/02/25 History (Laneigan) brimonidine 0.2 %-timolol 0.5 % 1 drp ophthalmic (eye) BID 04/18/25 05/03/25 05/03/25 History eye drops carvedilol 6.25 mg tablet 6.25 mg PO BID 04/18/25 05/03/25 05/03/25 History spironolactone 25 mg tablet 25 mg PO DAILY 04/18/25 05/03/25 05/02/25 History levothyroxine 100 mcg tablet 100 mcg PO DAILY@0600 04/19/25 05/03/25 05/03/25 History vit C 250 mg-vit E 90 mg-zinc 40 1 tab PO BID 04/19/25 05/03/25 05/02/25 History mg-copper 1 [id number] capsule (PreserVision AREDS-2) amoxicillin 875 mg-potassium 1 tab PO BID 05/03/25 05/03/25 05/03/25 History clavulanate 125 mg tablet multivitamin 1 tab PO DAILY 05/03/25 05/03/25 05/02/25 History Exam Height,Weight and Vital Signs: Height 5 ft 4 in Weight 81.193 kg Last Vital Signs Pulse 62 04/19/25 12:20 Resp 20 04/19/25 12:20 BP 177/81 H 04/19/25 12:20 Pulse Ox 98 04/19/25 12:20 O2 Del Method Room Air 04/19/25 12:20 Pertinent Lab Results Pertinent Lab Results: CBC 02/2025 WNL CMP 02/2025 WNL Narrative Narrative: EKG 04/15/25 NSR with SA @ 61 LAD LBBB ECHO 04/18/25 Mild concentric hypertrophy. Mildly reduced LV sys function. Biplance volumetric EF 50%. Abnormal septal wall motion d/t LBBB. Mild mitral regurg Airway Mallampati Class: II TM Dist: >3cm Neck ROM: Full Denture: Upper Partial: Lower Heart: RRR Lungs: CTAB Assessment and Plan Assessment Anesthesia Assessment: Anesthesia Plan Discussed and PAT Visit Final Anesthetic Review Family History of Problems with Anesthesia: No History of Problems with Anesthesia: No Documented by User: Yvette Vance DO 05/03/25 11:04 [facility] Past Medical History Medical History (Updated 04/19/25 @ 12:19 by Rossy Mccain RN) Macular degeneration Glaucoma CHF (congestive heart failure) CKD (chronic kidney disease) stage 3, GFR 30-59 ml/min LBBB (left bundle branch block) Osteopenia Osteoporosis Hypothyroid Elevated cholesterol HTN (hypertension) Borderline diabetes Family History Family history of problems with anesthesia: No Surgical History Surgical History (Updated 04/19/25 @ 12:14 by Rossy Mccain RN) Hx of bilateral cataract extraction Hx of oral surgery Hx of tonsillectomy H/O colonoscopy History of total bilateral knee replacement History of total abdominal hysterectomy and bilateral salpingo-oophorectomy History of Problems with Anesthesia: No Social History Social History Household Members Other:: son Are you a primary reproductive healthcare assistant to a significant other at home: No Do you presently have visiting nurse or other home services: No Comment: occasionally Patient Tobacco Use Status: Never used Tobacco Use of substances other than those prescribed or required for medical reasons: No Have you been hit, kicked, punched, or otherwise hurt by someone within the past year? If so, by whom?: No Spiritual Healthcare Practices: no [facility] Healthcare Practices: no Cultural Healthcare Practices: no Are you DNR?: No Advance Directives: No (son primary contacr) Advance Directives on File: No Meds Allergies Allergy/AdvReac Type Severity Reaction Status Date / Time bee pollen (bee stings) Allergy Severe Anaphylaxis Verified 04/19/25 12:16 codeine AdvReac Intermediate Drowsy/conf Verified 04/19/25 12:16 usion Home Medications ?Medication ?Instructions ?Recorded ?Confirmed ?Last Taken ?Type aspirin 81 mg tablet,delayed 81 mg PO BID 04/18/25 05/03/25 1 Week Ago History release ~04/26/25 atorvastatin 40 mg tablet 40 mg PO DAILY 04/18/25 05/03/25 05/02/25 History bimatoprost 0.01 % eye drops 1 drp ophthalmic (eye) BEDTIME 04/18/25 05/03/25 05/02/25 History (Lumigan) brimonidine 0.2 %-timolol 0.5 % 1 drp ophthalmic (eye) BID 04/18/25 05/03/25 05/03/25 History eye drops carvedilol 6.25 mg tablet 6.25 mg PO BID 04/18/25 05/03/25 05/03/25 History spironolactone 25 mg tablet 25 mg PO DAILY 04/18/25 05/03/25 05/02/25 History levothyroxine 100 mcg tablet 100 mcg PO DAILY@0600 04/19/25 05/03/25 05/03/25 History vit C 250 mg-vit E 90 mg-zinc 40 1 tab PO BID 04/19/25 05/03/25 05/02/25 History mg-copper 1 [id number] capsule (PreserVision AREDS-2) amoxicillin 875 mg-potassium 1 tab PO BID 05/03/25 05/03/25 05/03/25 History clavulanate 125 mg tablet multivitamin 1 tab PO DAILY 05/03/25 05/03/25 05/02/25 History Exam Exam Date and Time: 05/03/25 1100 Height,Weight and Vital Signs: Height 5 ft 4 in Weight 81.193 kg Last Vital Signs Pulse 62 04/19/25 12:20 Resp 20 04/19/25 12:20 BP 177/81 H 04/19/25 12:20 Pulse Ox 98 04/19/25 12:20 O2 Del Method Room Air 04/19/25 12:20 Height 5 ft 4 in Weight 80.6 kg Vital Signs Pulse Rate 62 04/19/25 12:20 Respiratory Rate 20 04/19/25 12:20 Blood Pressure 177/81 H 04/19/25 12:20 Pulse Oximetry 98 04/19/25 12:20 Oxygen Delivery Method Room Air 04/19/25 12:20 Temperature 97.8 F 05/03/25 08:46 Pulse Rate 78 05/03/25 08:46 Respiratory Rate 20 05/03/25 08:46 Blood Pressure 144/52 H 05/03/25 08:46 Pulse Oximetry 97 05/03/25 08:46 Oxygen Delivery Method Room Air 05/03/25 08:46 Airway Mallampati Class: II TM Dist: >3cm Neck ROM: Full Denture: Upper Partial: Lower Heart: S1S2 Assessment and Plan Assessment Anesthesia Assessment: Anesthesia Plan Discussed and Chart Reviewed Final Anesthetic Review Family History of Problems with Anesthesia: No History of Problems with Anesthesia: No NPO: Yes ASA Class: III Final Preanesthetic Review: No Changes in Pt Med Stat, Meds/Allgs Chart Reviewed, Consent Obtained/Reviewed and Anes Risks/Benef Reviewed Patient Risk: Intermediate Procedure Risk: Intermediate Anesthetic Plan Anesthetic Plan: GA and Agree w/ Assess. and Plan Disposition: Standard PACU
--- NOTE | 2025-05-03 13:20 | P.OP_ITS ---
Operative Note Operative Note Date of Service: 05/03/25 Narrative: Preoperative Diagnosis: Degenerative scoliosis with L3-4, L4-5 Spinal stenosis/lateral recess stenosis/neural foraminal stenosis Operation: Left L3-4, L4-5 Laminotomy, Partial facetectomy and foraminotomy with use of microscope; L3-L5 posterior instrumented fusion with pedicle screws; allograft Consent Informed Consent was obtained for this operation. I have explained the nature, purpose and benefits of the operation. I have discussed the risks and benefit of the operation including possible complications or adverse events with patient/family. Alternative(s) were discussed with the patient with their relative benefits and risks as well as the consequences of not accepting the operation were included in obtaining consent. Surgeon: CITLALY TOPETE MD, PHD Procedure Assisted By: karyn Kingston Description of Procedure This 89-year-old female is suffering from back pain and left lumbar radiculopathy. Imaging shows an extensive lumbar degenerative scoliosis, an old L3 compression fracture and L3-4 and L4-5 stenosis and foraminal stenosis. Normally, I would correct the scoliosis but due to the patient's age and bone quality this is not a good solution. Therefore I offered her a left L3-4 and L4-5 decompression with foraminotomy followed by unilateral instrumented fusion L3-L5 to make sure that the L4 and L3 foramina are not collapsing after the decompression. The procedure complications were explained. The patient was consented. The patient was brought to the operating room and endotracheally intubated. The patient was turned in prone position on the Tesfaye spine table. Prep and drape was done followed by timeout. A left paramedian incision was made in preparation for the pedicle screw placement. The muscle fascia was opened and then the following steps were taken: A pediguard tap was used to create a transpedicular trajectory into the vertebral body followed by placement of K wire at L3, L4 and L5. The K-wires were bent out of the surgical field. Then the paravertebral muscle were released to expose the L3 to L5 lamina and facet joints. An intraoperative x-ray was obtained to confirm the correct level. The microscope was brought in. The high-speed drill was used to do a L3-4 laminotomy. #2 Kerrison was used to further remove the lamina towards the L3 foramen. With a nerve hook the medial wall of the L3 pedicle was palpated as well as the beginning of the L3 foramen. The facet joint was partially drilled down after which with a #2 Kerrison a foraminotomy was done. Finally a foraminotomy Kerrison was used to complete the foraminotomy. A similar procedure was repeated at the L4-5 level. The lateral recess was decompressed as well as the exiting L4 nerve root. A long nerve hook could be easily passed lateral and dorsally from the nerve roots, a sign of relief of the neuroforaminal stenosis and decompression of the nerve roots . The microscope was removed. Then we proceeded with the unilateral pedicle screw placement. A specially designed instrument was advanced over the K wire to decorticate the posterolateral gutter in preparation for the posterolateral fusion. A pedicle screw was advanced over the K wire and the K wire was removed. The steps were done for the bilateral L3, L4 and L5 pedicles. A total of 3 screws were placed with a diameter of 6.5 x 45 mm. Pedicle screws were connected with 55 mm thanh and locked down with locking caps. The extension towers were removed. The posterolateral gutter was filled with allograft to complete the unilateral posterolateral L3-L5 fusion. Hemostasis was done. The paramedian incisions were closed in 2 layers. Steri- Strips were used to approximate incisions. An OpSite with Tegaderm was used to cover the incisions. All sponge needle counts were correct. Patient was extubated and transported in stable is to recovery room. Anesthesia: General Estimated Blood Loss (ml): 40 Duration of Surgery: 1 hour 45 minutes Postoperative Plan: Admit for observation
[2025-05-03] MEDS: timoloL maleate 0.5 % Oph Sol 5 ML DRBTL 1 DROP EYE-BOTH (20:25)
[2025-05-03] MEDS: Latanoprost 0.005 % Ophth Sol 2.5 ML DROPS 1 DROP EYE-BOTH (20:25)
[2025-05-03] MEDS: Brimonidine Tartrate 0.2% Oph 5 ML BOTTLE 1 DROP EYE-BOTH (20:25)
[2025-05-03] MEDS: oxyCODONE HCl Immed Release 5 MG TABLET 10 MG PO (23:49)
[2025-05-04 03:39] VITALS: BP 128/71; PULSE 59; RESP 18; TEMP 36.8; O2SAT 97
[2025-05-04] MEDS: oxyCODONE HCl Immed Release 5 MG TABLET 10 MG PO (07:23)
--- NOTE | 2025-05-04 07:25 | P.DS_ITS ---
DS: Providers Provider Date of Service: 05/04/25 Date of admission: 05/03/25 08:26 Date of discharge: 05/04/25 Primary care physician: Zac Castro MD DS: Summary Time Attestation Discharge Coordination Time (in mins): 12 Quality: Safe Use of Opioids Does Pt have an Active Cancer Diagnosis on the Problem List?: No Quality: Stroke Does the patient have a stroke diagnosis?: No Physical Exam Vital Signs: Vital Signs: Last Vital Signs Temp 98.2 F 05/04/25 03:39 Pulse 59 05/04/25 03:39 Resp 18 05/04/25 03:39 BP 128/71 05/04/25 03:39 Pulse Ox 97 05/04/25 03:39 O2 Del Method Room Air 05/04/25 03:39 O2 Flow Rate 6 05/03/25 13:56 BMI result Body Mass Index 30.5 Discharge Plan Discharge Anticipated Discharge Date/Time: 05/04/25 07:25 Patient Disposition: Home, Self-Care Discharge Diagnosis: s/p Left L3-4, L4-5 Laminotomy with L3-5 unilateral instrumentation Referrals: Zac Castro MD [Primary Care Provider, Internal Medicine] - 1 Week Discharge Medications: New tramadol 50 mg tablet 50 mg PO Q6H PRN (Reason: pain) Qty: 20 0RF Continued atorvastatin 40 mg tablet 40 mg PO DAILY carvedilol 6.25 mg tablet 6.25 mg PO BID spironolactone 25 mg tablet 25 mg PO DAILY brimonidine-timolol 0.2-0.5 % drops 1 drp ophthalmic (eye) BID Lumigan 0.01 % drops 1 drp ophthalmic (eye) BEDTIME levothyroxine 100 mcg tablet 100 mcg PO DAILY@0600 PreserVision AREDS-2 250-90-40-1 mg Capsule 1 tab PO BID multivitamin Tablet 1 tab PO DAILY amoxicillin-pot clavulanate 875-125 mg tablet 1 tab PO BID Held aspirin 81 mg Tablet,Delayed Release (Dr/Ec) 81 mg PO BID Hold Instructions: Resume on 05/07/25. Discharge Orders: Discharge Order (Routine); Ordered 05/04/25 Ordered By: Juan F Barraza Diet: Advance to usual diet Activity on Discharge: As tolerated Stand Alone Forms: Patient Portal Discharge page Print Language: Hong Konger Activity Restrictions/Additional Instructions: After your spinal surgery we ask you to observe the following restrictions/guidelines: Activity: It is normal to feel some discomfort as you increase your activity, but that will improve with time. We ask you avoid heavy lifting or acitivities that cause pain. As a general rule, 8lbs is a safe limit for lifting right after surgery. Walk as much as you feel comfortable but not to exhaustion. You will feel extra tired the first few days after surgery. Stay well hydrated. It is OK to walk up and down stairs You may return to driving when you are off narcotics (such as vicodin, oxycodone, dilaudid, etc), and you are back to normal functional capacity. If you have any concerns please check with office before driving. Return to work is specific to each patient and each surgery, so please speak with your doctor/PA at first follow up. Please bring paperwork such as FMLA at that time if you need it filled out. Medications: We recommend you take 500mg Tylenol every 4 hours for the first week after surgery, if you do not have any liver issues and can tolerate this medication. Do not exceed 4,000mg daily. We also recommend you take Ibuprofen 600mg every 8 hours for the first week after surgery starting on post op day 1, ?if you do not have any kidney or sugar control issues and can tolerate this medication. Do not exceed 2,000mg daily. We will give you a short supply of narcotics after surgery (usually one weeks worth). If you need more please call the office but do not use more than prescribed. You will need to give our office 48 hours notice if you need narcotics refilled and we do not fill narcotics on weekends or evenings. If you are on a narcotic, it is a good idea to take a stool softener such as colace or senna to avoid constipation If you take blood thinner such as aspirin, Plavix, Coumadin, Effient, Eliquis etc for conditions such as Afib, DVT, Pulmonary embolus, coronary disease, stents etc please speak with your surgeon about specific details as to when you can resume these medications. You can resume NSAIDs on post op day 1 (eg: Motrin, Naproxen, etc). Follow up: Please call the office, , after surgery to arrange a 3 week follow up for wound check. Wound Care: You may remove your dressing on the first day after surgery. ?You may ?leave open to air. Please do not remove the steri strips underneath. they will fall off on their own in one week. IT IS NORMAL FOR THE WOUND TO OOZE OR BE BLOODY FOR A FEW DAYS AFTER SURGERY. ?IF THIS HAPPENS JUST PLACE NEW DRESSING OVER IT TO AVOID STAINING CLOTHES. You may shower on post op day # 1 We ask that you do not let the water soak the wound. If it does get wet, just towel dry lightly. Please do not scrub your incision or place any type of chemical/ointment on the wound. No tub baths, pools or jacuzzis for one month. If you have any leaking or redness from your wound, or fevers, please call the office. Care Plan Goals: Follow-up in clinic in 2-3 weeks Health Concerns: None Plan of Treatment: Return to normal activity as tolerated Assessment: POD: 1 Procedure: Left L3-4, L4-5 Laminotomy with L3-5 unilateral instrumentation Chey is a pleasant 89-year-old female who underwent the above-listed pro cedure with Dr. Suh yesterday. She was kept overnight in the hospital for continued pain management evaluation. She reports that overall she is doing well, and reports minimal pain. She has been up out of bed and ambulated around her room. She is voiding well and has used the bathroom. She is tolerating her current diet. The patient is requesting to discharge home today. Afebrile, vital signs stable. Full strength bilateral lower extremities. Back dressing has some staining without signs of hematoma. No active sanguineous drainage. Area is dry. Plan: Pleasant 89-year-old female who underwent the above-listed procedure with Dr. Suh yesterday. She is progressing normally as expected. Patient meets criteria to be medically discharged home. He was seen at bedside with Dr. Suh. I sent in a prescription for Tramadol to the pharmacy here at [facility]. Juan F Suh MD,PhD [facility]
[2025-05-04 07:35] VITALS: BP 136/69; PULSE 85; RESP 16; TEMP 36.3; O2SAT 96
--- NOTE | 2025-05-04 08:09 | HO.POSTANES ---
Post Anesthesia Evaluation Post Anesthesia Evaluation Date of Service: 05/04/25 Vital Signs: Vital Signs Temp Pulse Resp BP Pulse Ox O2 Del Method 05/04/25 07:35 97.4 F 85 16 136/69 96 Room Air 05/04/25 03:39 98.2 F 59 18 128/71 97 Room Air 05/03/25 23:33 97.4 F 60 18 145/64 H 95 Room Air Anesthesia: General Mental Status: Awake Pain Control: Satisfactory Nausea/Vomiting: None Hydration: Adequate Anesthesia-Related Issues: No Anes. Related Issues
--- NOTE | 2025-05-04 09:04 | MHC.CM.PN ---
pt lives with son is going home self care has own ride
== END 2025-05-04 09:04 | disposition home or self-care (01) | DRG 458 ==
LOC: HO.SSSA 08:45 → HO.S3 13:57
PROVIDERS: Neurological Surgery; Admitting Provider Physician Assistant; PCP Internal Medicine; Visit Provider Physician Assistant
PROC: 0SG10K1 Fusion of 2 or more Lumbar Vertebral Joints with Nonautologous Tissue Substitute, Posterior Approach, Posterior Column, Open Approach (ICD-10-PCS; CPT 22840; principal; 2025-05-03 11:10)
DX: M48.062 Spinal stenosis, lumbar region with neurogenic claudication (principal); M41.56 Other secondary scoliosis, lumbar region; Z79.82 Long term (current) use of aspirin; Z79.890 Hormone replacement therapy; Z79.899 Other long term (current) drug therapy
CPT/HCPCS: 22840; 20930; 22612; 63047; 97161; C1713; J0131; J0690; J1100; J1171; J1920; J2003; J2405; J2704; J3010; L8699

== ENCOUNTER → 2025-05-03 08:26 | Outpatient (BNV) | payer MEDICARE, SELFPAY | PROVIDERS: Admitting Provider Physician Assistant; PCP Internal Medicine; Visit Provider Neurological Surgery | DX: M41.86 Other forms of scoliosis, lumbar region (principal) | CPT/HCPCS: 20930; 22612; 22840; 63047; 99499 ==

== ENCOUNTER 2025-05-25 14:14 | Outpatient (REF) | payer MEDICARE, SELFPAY ==
--- OUTSIDE RECORDS SUMMARY | 2024-01-23 08:20 | XMS_ITS ---
Author Organization [facility] [employer], [facility] Address [address] [address] Care Team Providers Care School Bus Driver Name Role Phone Zac Castro Primary Care Provider Unavail Emir Oleary Unavailable [phone] REASON FOR VISIT 3 mon f/u Encounters Encounter Location Date Provider Diagnosis [facility], [facility] NEUROSCIENCE [facility], [address] [address] 01/23/2024 Emir Reddy Plan Of Treatment Next Appt Details Provider Name:Emir horan, 06/02/2025 01:00:00 PM, [address] [facility], [address], [place], [address], Progress Notes * Chey RAGLANDDOB: (89 yo F)Acc No.[id number]:01/23/2024 Progress Notes Patient: Chey STONE Provider: Garth Reddy MD :1935 A ge:88 Y S ex:Female Date:01/23/2024 Address:[address] [place], [place] [phone] Pcp:Zac Castro Subjective: * Chief Complaints: * 1 . 3 mon f/u. * Medical History: Objective: * Vitals: Assessment: Plan: * Treatment: * * Electronic signature of Arturo Reddy MD on 05/25/2025 at 11:51 PM EST Sign off status: Pending * Provider: Garth Reddy MD Date: 0 01/23/2024 Generated for Lore colunga/Medina/Karolineitting on: 1 07/26/2024 11:51 PM EST
--- OUTSIDE RECORDS SUMMARY | 2024-03-19 08:40 | XMS_ITS ---
Author Organization [facility], [facility] Address 33 [facility] [address] [place] [address] Care Team Providers Care Customer Professional Name Role Phone Zac Castro Primary Care Provider Unavail Emir Oleary Unavailable [phone] REASON FOR VISIT f/u Encounters Encounter Location Date Provider Diagnosis [facility], [facility] [address] [facility] [address] [place] [address] 03/19/2024 Emir Reddy Plan Of Treatment Next Appt Details Provider Name:Emir horan, 06/02/2025 01:00:00 PM, [address] [facility], [address], [place], [address], Progress Notes * Chey RAGLANDDOB: (89 yo F)Acc No.[id number]:03/19/2024 Progress Notes Patient: Chey STONE Provider: Garth Reddy MD :1935 A ge:88 Y S ex:Female Date:03/19/2024 Address:[address] [place], [place] [phone] Pcp:Zac Castro Subjective: * Chief Complaints: * 1 . F/u. * Medical History: Objective: * Vitals: Assessment: Plan: * Treatment: * * Electronic signature of Arturo Reddy MD on 05/25/2025 at 11:52 PM EST Sign off status: Pending * Provider: Garth Reddy MD Date: 1 Generated for Kendrai keanu/Medina/eTransmitting on: 1 07/26/2024 11:52 PM EST
--- OUTSIDE RECORDS SUMMARY | 2024-04-07 06:00 | XMS_ITS ---
Author Organization [facility] [employer], [facility] Address 33 [facility] [address] [place] [address] Care Team Providers Care Ship Cleaner Name Role Phone Zac Castro Primary Care Provider Unavail Emir Oleary Unavailable [phone] REASON FOR VISIT MRI f/u Encounters Encounter Location Date Provider Diagnosis [facility], [address] [place] [address] 04/07/2024 Emir Reddy Plan Of Treatment Next Appt Details Provider Name:Emir horan, 06/02/2025 01:00:00 PM, [address] [facility], [address], [place], [address], Progress Notes * Chey RAGLANDDOB: (89 yo F)Acc No.[id number]:04/07/2024 Progress Notes Patient: Chey STONE Provider: Garth Reddy MD :1935 A ge:88 Y S ex:Female Date:04/07/2024 Address:[address] [place], [place] [phone] Pcp:Zac Castro Subjective: * Chief Complaints: * 1 . MRI f/u. * Medical History: Objective: * Vitals: Assessment: Plan: * Treatment: * * Electronic signature of Arturo Reddy MD on 05/25/2025 at 11:51 PM EST Sign off status: Pending * Provider: Garth Reddy MD Date: 1 Generated for Lore colunga/Medina/eTransmitting on: 1 07/26/2024 11:51 PM EST
--- NOTE | ~2025-05-25 | XR_ITS ---
EXAMINATION: XR LUMBAR SPINE 2-3 VIEWS HISTORY: M48.062 - Spinal stenosis, lumbar region with neurogenic claudication COMPARISON: Comparison is made with the prior examination dated 03/11/2025. FINDINGS: AP and lateral views of the lumbar spine are submitted. Osseous mineralization is normal. In the interval since the prior study, the patient is status post posterior fusion of L3-L5 on the left with pedicle screws and a spinal stabilization thanh. The fusion hardware is intact. There is moderate rotatory dextroscoliosis. There is moderate degenerative disc disease with disc space narrowing and osteophyte formation. There is calcification of the abdominal aorta. XR/XR lumbar spine 2-3V IMPRESSION: Status post posterior fusion of L3-L5 on the left. 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 Electronically signed by: Rito Jefferson MD 05/25/2025 03:37 PM JEANETTE
--- OUTSIDE RECORDS SUMMARY | 2025-05-25 23:51 | XMS_ITS | Data Portability ---
Author Organization [facility] [employer], svmg_admin Address [address] [place] [address] Care Team Providers Care Delinquency Counselor Name Role Phone VIDAL ERNIE Referring Provider ZIGGY DUKES Primary Care Provider Assessment No assessment recorded. Plan of Treatment Reminders Order Date Submit Date Provider Last Modified By Organization Details Last Modified Time Details Appointments None recorde d. Lab TSH + free T4, serum 025 02/02/20 [place] [facility], [address], [place], [address], 07:05:43 Referral None recorde d. Procedures None recorde d. Surgeries None recorde d. Imaging None recorde d. Medication Orders None recorde d. Patient TargetsNo targets recorded. Patient Instructions Encounter Date Encounter Id Patient Instructions Last Modified By Organization Details Last Modified Time 02/01/2025 [id number] osteoporosis: care instructions Not available 02/01/2025 15:33:31 A healthy lifestyle: care instructions Not available 02/01/2025 15:33:31 Reason for Referral None Reported. Results Created Date Observation Date Name Description Value Unit Range Abnormal Flag Note LastModifiedBy Organization Detail LastModifiedTime 02/02/2002/02/2025 TSH+F REE T4 TSH 0.055 uIU/m L 0.450- 4.500 below low normal Not Available [facility] ([facility]) [address] [facility], [place], [address], 02/02/2025 07:05:43 02/02/2002/02/2025 TSH+F REE T4 T4,free(dire ct) 1.83 NG/dL 0.82-1 .77 above high normal Not Available [facility] ([facility]) [address], [place], [address], 02/02/2025 07:05:43 Result Notes None recorded. Procedures Surgical History Date Name Laterality Status Provider Name and Address Organization Details Recorded Time 07/31/19 24 total knee replacement completed zach o'jarett [facility]. 02/01/2025 14:54:40 12/29/19 23 total knee replacement completed zach o'jarett [facility]. 02/01/2025 14:54:07 hysterectomy completed [facility]'jare[facility]. 02/01/2025 14:54:53 tonsillectomy completed [facility] jefry'jarett [facility]. 02/01/2025 14:55:03 Hemorrhoidectomy completed zach o'jarett [facility]. 02/01/2025 14:55:24 cataract surgery completed [facility] o'jarett [facility]. 02/01/2025 14:57:34 Imaging Results None recorded. Procedure Notes None recorded. Medical Equipment None Reported. Allergies Allergen ID Allergen Name Allergen Category Reaction Reaction Severity Criticality Documentation Date Start Date Code Code System Note Provider Name and Address Organization Details Recorded Time 353408 honey bee venom medicatio n Not available Not available Not available 02/01/2025 67854 7 RxNorm zach jefry'jarett [facility]. 14:56:51 Medications Name Sig Start Date [...] Updated DateTime 5 158.75 cm 31.9 kg/m2 08644.6 5 g 7 97.3 [degF] 69 /min 97 % 178/80 mm[Hg] zach thorpe [facility] 14:58:13 Social History Question Answer Notes LastModified by Organizat ion Details LastModified Time Tobacco Smoking Status Never [facility]/01[facility]25 14:52:02 What Is Your Level Of Caffeine Consumption? Occasional One Cup In The Morning [email or web address] Information not available 02/01/2025 Are You Deaf Or Do You Have Serious Difficulty Hearing? Yes [email or web address] Information not available 02/01/2025 Which Of Your Hands Is Dominant? Right [email or web address] Information not available 02/01/2025 What Was The Date Of Your Most Recent Tobacco Screening? 02/01/2025 [email or web address] Information not available 02/01/2025 Sex: Unknown Functional Status Question Answer Note LastModified by Organizat ion Details LastModified Time Do you use any illicit or recreational drugs? No [email or web address] Information not available 02/01/2025 What is your level of alcohol consumption? None [email or web address] Information not available 02/01/2025 Are you able to care for yourself independently? No [email or web address] Information not available 02/01/2025 Mental Status None recorded. Family History Relationship Description Onset Age of this Age Resolved Age Notes LastModified by Organization Details LastModified Time Father No current problems or disability Not available 01/14 14:50:46 Mother No current problems or disability [email or web address] Not available 01/14 14:50:46 Medical History No medical history recorded. Gynecological HistoryNo gynecological history recorded. Obstetrics History GPAL:G 0 P 0 0 0 0 Immunizations Vaccine Type Date Status Note Provider Nam e and Address Organization Details Recorded Time COVID-19, mRNA, LNP-S, PF, 100 mcg/0.5mL dose or 50 mcg/0.25mL dose 1 completed Not Available [facility] 02/01/2025 14:37:00 COVID-19, mRNA, LNP-S, PF, 100 mcg/0.5mL dose or 50 mcg/0.25mL dose 1 completed Not Available [facility] 02/01/2025 14:37:00 Influenza, MDCK, quadrivalent, preservative 2 completed Not Available [facility] 02/01/2025 14:37:00 Past Encounters Encounter ID Performer Location Encounter Start Date Encounter Closed Date Diagnosis/Indication Diagnosis SNOMED-CT Code Diagnosis ICD10 Code Diagnosis IMO Codes Diagnosis Note [id number] Tonio German MD [facility] [address] [address] 02/01/2025 14:35:58 02/01/2025 15:39:36 Primary hypothyroidism 98654917 E03.9 42872 I am repeating a TSH because I [...] and gait training to prevent falls Prediabetes 942702219 R7 3.03 838034 No medication s necessary. This following some diet and losing weight may help Health Concerns Section Related Observation LastModified by Organization Detai ls LastModified Time None Recorded Concern Status LastModified by Organization Details LastModified Time None Recorded Advance Directives Directive None Recorded Payers Insurance Date Sequence Insurance Name Policy Number Policy Molina Covered Member ID Molina Member ID Guarantor Name 02/11/2025 1 [employer] [facility] - SENIOR PLAN (MEDICARE REPLACEMENT HMO) Chey Ragland [id number] Chey Ragland 02/11/2025 1 [employer] [facility] Chey Ragland [id number] Chey Ragland Notes Date Note Type Note [...] well. She lives with her son Bone [email or web address]/30/2024 10:17 AM EST EXAM: BONE MINERAL DENSITYPROCEDURE: The bone mineral density (BMD) of the spine and proximal left femur was determined using an external X-ray source ([employer]).SITE: [facility]: Prior BMD of 2022FINDINGS:L1: BMD 0.84gm/cm2 [...] microarchitecture: >1.31; degraded: <1.24) Tonio German MD [address] [place] [address], [phone], [place] - [facility] Physician [facility]. 02/01/2025 17:01:53 OBGyn Episode No OBEpisode recorded.
--- OUTSIDE RECORDS SUMMARY | 2025-05-25 23:51 | XMS_ITS | Patient Health Record ---
Author Organization [facility] Address [address] [address] Care Team Providers Care Pinion Polisher Name Role Phone Zac Castro Primary Care Provider Unavail able Emir Reddy Unavailable [phone] Allergies Allergen (clinical drug ingredient) Drug/Non Drug Allergy documented on EMR Reaction Allergy Type Onset Date Status Bee Sting Unknown Allergy Active Results Component Value Reference Range Notes MR-Brain (C-/C+) CPT 41790 Reviewed date:02/21/2025 03:30:59 PM Interpretation: Performing Lab: Notes/Report: Reason For Referral No Information Medications Medication [...] Status W/U Status Risk Notes Problem Hyperlipidemia (58220504) Hyperlipidemia (E78.5) Active confirmed Problem Hypothyroidism (15393489) Hypothyroidism (E03.9) Active confirmed Problem Hypertension (62484177) HTN (hypertension) (I10) Active confirmed Vital Signs Heart Rate 68 /min 06/01/2024 Oximetry 95 % 06/01/2024 Blood pressure diastolic 78 mm Hg 06/01/2024 Height 64 in 06/01/2024 Blood pressure systolic 126 mm Hg 06/01/2024 Weight 180 lbs 06/01/2024 BMI 30.89 kg/m2 06/01/2024 Encounters Encounter Location Date Provider Diagnosis [address] [address] 06/01/2024 Emir Reddy Abnormal brain MRI R90.89 and Dizziness and giddiness R42 [address] [address] 05/06/2025 Emir Reddy [address] [address] 05/25/2025 Emir Reddy Assessments Encounter Date Diagnosis (ICD Code) Assessment [...] her to continue to follow with her medical intern and primary care doctor to optimize her [...] her to continue to follow with her medical intern and primary care doctor to optimize her [...] Plan Of Treatment Next Appt Details Provider Name:Emirfarooq Ritchie , 06/02/2025 01:00:00 PM, [address] [place] [address], [address], [place], [address], Insurance Providers Payer Name Payer Address Payer Phone Subscriber Number Group Number Insured Name Patient Relationship to Insured Coverage Start Date Coverage End Date Lucy /Kareem khan [address] [place] [phone] [id number] Chey Ragland Self - patient is the [...]
--- OUTSIDE RECORDS SUMMARY | 2025-05-25 23:52 | XMS_ITS | Patient Health Record ---
Author Organization [facility] Address [address] [facility] [address] [place] [address] Care Team Providers Care Jewelry Dipper Name Role Phone Gloria LEDESMA, Zac Primary Care Provider Abram Escudero M.D, M.P.H, Suzy Unavailable Allergies Allergen (clinical drug ingredient) Drug/Non Drug Allergy documented on EMR Reaction Allergy Type Onset Date Status acetaminophen / codeine Acetaminophen-Co deine Sensitivities will not take Drug Allergy Active Reason For Referral Reason [id number] Referring Provider First Name Zac Referring Provider Last Name Gloria Referred Organization [facility] Referred Provider Suzy Escudero Referred Address [address] [facility] [facility],[address], Referred Provider Specialty Otology, Lar yngology, Rhinology Referral Priority Routine Reason [id number] Referring Provider First Name Zac Referring Provider Last Name Gloria Referred Organization [facility] Referred Provider Malini Parry Referred Address [address] [facility] [facility],[address], Referred Provider Specialty Audiologists Referral Priority Routine [...] Risk Notes Problem Sensorineural hearing loss, bilateral (644253315) Bilateral sensorineural hearing loss (H90.3) Active confirmed Problem Lightheadedness (719013963) Lightheadedness (R42) Active confirmed Plan Of Treatment No Information Insurance Providers Payer Name Payer Address Payer Phone Subscriber Number Group Number Insured Name Patient Relationship to Insured Coverage Start Date Coverage End Date Medicare Plus HMO [address] [place] [phone] [id number] Chey Ragland Self - patient is the insured Medical (General) History Medical History History ICD Code Hypertension High Cholesterol Hypothyroidism Dizziness Surgical History Surgery Date(Month/Year) Hysterectomy Hospitalization History Reason Date(Month/Year) Hysterectomy
== END 2025-05-25 14:15 | disposition home or self-care (01) ==
LOC: HO.HOSX 14:14
PROVIDERS: PCP Internal Medicine; Visit Provider Physician Assistant
DX: Z48.811 Encounter for surgical aftercare following surgery on the nervous system (principal); M48.062 Spinal stenosis, lumbar region with neurogenic claudication; Z98.1 Arthrodesis status
CPT/HCPCS: 72100; 99212

== ENCOUNTER 2025-05-25 14:14 | Outpatient (AMB) | payer MEDICARE, SELFPAY ==
--- NOTE | 2025-05-25 14:41 | A.SPINEOV_ITS ---
Intake Visit Reasons: 1st post op Intake Note: Ms. Ragland is here today for her 1st post op. Electromedical Equipment Repairer Required: No Allergies bee pollen (bee stings) Allergy (Severe, Verified 04/19/25 12:16) Anaphylaxis codeine Adverse Reaction (Intermediate, Verified 04/19/25 12:16) Drowsy/confusion Assessment & Plan Assessment & Plan (1) Lumbar stenosis with neurogenic claudication: Code(s): M48.062 - Spinal stenosis, lumbar region with neurogenic claudication Category: Medical Plan Operation: Left L3-4, L4-5 Laminotomy, Partial facetectomy and foraminotomy with use of microscope; L3-L5 posterior instrumented fusion with pedicle screws. Chey is a pleasant 89-year-old female who comes in today for her 1st postoperative visit after having the above-mentioned procedure with Dr. Suh. To recap in the acute postoperative period after returning home the patient called our clinic to report severe left thigh that only occured with standing and walking. She was transitioned from tramadol to oxycodone. She reports that she did very well on this medication, and it helped control her pain. After she got through most of it she ended up transitioning back to tramadol as this was able to cover her pain adequately. Unfortunately, she reports that she bent over yesterday to get something out from below her kitchen cabinets, and experienced a significant flare-up of low back pain. It has lessened since yesterday, but she still feels she has more pain than she did for the last couple of weeks. We discussed the postoperative healing course and I answered all questions that the patient and her son who accompanied her to this visit had. No new neurological deficits. The patient ambulates independently, and is able to rise from a seated position by bracing herself on the chair. Her posterior incision sites are closed and well healing. I would like to follow up with the patient again in 6 weeks for a 2nd postoperative visit with a set of x-rays. I will also be sending her for ap/lateral x-rays today to ensure there is no complication with her surgical c onstruct. It sounds like her pain is just a flare-up of inflammation/muscle spasms, however I would like to make sure. I will also refill her tramadol medication as this has been helping her pain control. Juan F Suh MD,PhD [facility] Orders: Orders XR lumbar spine 2-3V Today M48.062 - Spinal stenosis, lumbar region with neurogenic claudication Medications: New tramadol 50 mg PO Q6H PRN 30 tabs 0RF pain Coding Level of Care Code Global (86227) Diagnoses Lumbar stenosis with neurogenic claudication M48.062
--- OUTSIDE RECORDS SUMMARY | 2025-05-25 22:17 | XMS_ITS | Encounter Summary ---
Author Organization [facility] Address [address] [place] [address] Care Team Providers Care Dividing Machine Operator Helper Name Role Phone Zac Castro MD Primary Care Provider [phone] Reason for Visit * Reason Comments Prescription Assistance Encounter Details Date Type Department Care Team ([facility] st Contact Info) Description 01/07/2022 Telephone CALL CENTER [facility] [address] [place] [phone] Froilan Ramos MD [address] [place] [id number] Prescription Assistance Social History Tobacco Use Types Packs/Day Years Used Date Smoking Tobacco: Never Smokeless Tobacco: Never Comments Unknown Sex and Gender Information Value Date Recorded Sex Assigned at Female 05/18/2025 3:29 PM EST Legal Sex Female 6:56 PM EDT Gender Identity Female 05/18/2025 3:29 PM EST Sexual Orientation Not on file documented as of this encounter Miscellaneous Notes * Telephone Encounter - Taz Banegas LVN LPN - 01/08/2022 1:20 PM EDT Pt aware Rx sent * Telephone Encounter - Lew Antunez - 01/08/2022 1:00 PM EDT Pt calling back to find out the status of her rx refill request. Would like rx sent to [facility] in [place], [place]. Would like a call when rx if filled. * Telephone Encounter - Shravan Arana - 01/07/2022 2:22 PM EDT Patient calling to say that she is almost out of oxycodone and would like a refill. documented in this encounter Plan of Treatment Not on file documented as of this encounter Visit Diagnoses Not on filedocumented in this encounter Care Teams Dividing Machine Operator Helper Relationship Specialty Start Date End Date Zac Castro MD [facility] [address] [place] [address] PCP - General Internal Medicine 03/31/10 documented as of this encounter
--- OUTSIDE RECORDS SUMMARY | 2025-05-25 22:17 | XMS_ITS | Encounter Summary ---
Author Organization [facility] Address [address] [place] [address] Care Team Providers Care Glove Turner And Former Name Role Phone Zac Castro MD Primary Care Provider [phone] Reason for Visit * Reason Comments Prescription Assistance Encounter Details Date Type Department Care Team (Late st Contact Info) Description 2022 Telephone CALL CENTER [facility] [address] [place] [id number] Froilan Ramos MD [address] [place] [address] Prescription Assistance Social History Tobacco Use Types [...] on filedocumented in this encounter Care Teams Glove Turner And Former Relationship Specialty Start Date End Date Zac Castro MD [facility] [address] [place] [address] PCP - General Internal Medicine 03/31/10 documented as of this encounter
--- OUTSIDE RECORDS SUMMARY | 2025-05-25 22:17 | XMS_ITS | Clinical Summary ---
Author Organization [facility] Facility Address [address] [address] Care Team Providers Care Assistant Community Manager Name Role Phone Zac Castro MD [...] topic Insurance [employer] KEELY VILLANUEVA [id number] [employer] Care Teams Assistant Community Manager Relationship Specialty Start Date End Date Zac Castro MD PCP - General Internal Medicine 12/05/22
--- OUTSIDE RECORDS SUMMARY | 2025-05-25 22:17 | XMS_ITS | Encounter Summary ---
Author Organization [facility] Address [address] [place] [address] Care Team Providers Care Solar Panel Technician Name Role Phone Zac Castro MD Primary Care Provider [phone] Encounter Details Date Type Department Care Team ([facility] st Contact Info) Description 01/16/2022 Orders Only [facility] Orthopedic Surgery [phone] [phone] Froilan Ramos MD [address] [place] [address] [place] [phone] Social History Tobacco Use Types Packs/Day Years [...] of this encounter Results * Due to [place] state law, this organization might not be [...] on filedocumented in this encounter Care Teams Solar Panel Technician Relationship Specialty Start Date End Date Zac Castro MD [address] [address] PCP - General Internal Medicine 03/31/10 documented as of this encounter
--- OUTSIDE RECORDS SUMMARY | 2025-05-25 22:17 | XMS_ITS | Clinical Summary ---
Author Organization [facility] Address [address] [place] [address] Care Team Providers Care Certified Optician Name Role Phone Zac Castro MD Primary Care Provider [phone] [phone] Allergies Active Allergy Reactions Criticality Noted Date Comments Atenolol Other 12/29/2007 FATIGUE Codeine Sulfate Maculopapular Rash,U rticarial Rash 07/30/2000 Hctz Electrolyte Disturbance 12/29/2007 Lisinopril Other 12/29/2007 LEG SWELLING Medications TRIAMTERENE-HCTZ 75-50 MG OR TABS Take 1 tablet by mouth daily 30 5 8 Active Atorvastatin Calcium 40 MG Tab None Entered 8 Active Losartan Potassium 100 MG Tab None Entered 8 Active Magnesium 100 MG Cap Take 1,000 mg by mouth 1 (one) time each day Active Multiple Vitamins-Mineral s (Multi Complete) Cap Take by mouth Ac tive B Complex-C (Vitamin B + C Complex) Tab Take by mouth Act miller Ascorbic Acid (Vitamin C) 100 MG Chew Tab Chew 1 tablet 3 (three) times a day. Active Brimonidine Tartrate-Timolol (COMBIGAN) 0.2-0.5 % ophthalmic solution PLACE 1 DROP INTO BOTH EYES TWICE DAILY 2 Active Cholecalciferol (EQL Vitamin D3) 50 MCG (1999) capsule Take 2,000 Units by mouth 1 (one) time each day Active Aspirin Low Dose 81 MG chewable tablet Chew 81 mg 2 (two) times a day 3 Active Ferrous Gluconate (FERGON) 324 (38 Fe) MG tablet Take 1 tablet by mouth 2 (two) times a day with meals 3 Active Carvedilol (COREG) 6.25 MG tablet Take 1 tablet by mouth in the morning and at bedtime . 5 Active Lumigan 0.01 % ophthalmic drops Administer 1 drop into both eyes every night . 5 Active Levothyroxine Sodium (SYNTHROID, LEVOTHROID) 100 MCG tablet Take 1 tablet by mouth 1 (one) time each day . 5 Active Amoxicillin-Pot Clavulanate (AUGMENTIN) 875-125 MG per tabletIndication s:Ingrowing nail, right great toe,Pain in right toe(s),Paronychi a of great toe of right foot Take one tablet by mouth 2 (two) times a day for 10 days. 20 tablet 5 06/04/20 25 Active Additional Information Patient not taking.Reported on 05/19/2025 Amoxicillin (AMOXIL) 500 MG tablet TAKE 4 TABLET BY MOUTH ONCE A DAY 1 HOUR BEFORE THE PROCEDURE 5 Active Amoxicillin (AMOXIL) 500 MG capsule Take 1 capsule by mouth 3 (three) times a day. 4 Active Calcium Carb-Cholecalcif jordan 600-20 MG-MCG Tab Take 600 Units by mouth 1 (one) time each day. Active Ibuprofen (ADVIL,MOTRIN) 600 MG tablet Take 600 mg by mouth every 6 (six) hours if needed TAKE 1 TABLET BY MOUTH EVERY 6 HOURS TO EVERY 8 HOURS NEEDED FOR PAIN. 4 Active Dapagliflozin (Farxiga) 10 MG tablet Take 5 mg by mouth. Active prednisoLONE Acetate (PRED FORTE) 1 % ophthalmic suspension 4 Active traMADol HCl (ULTRAM) 50 MG tablet Take 1 tablet by mouth every 6 (six) hours if needed for pain. 5 Active oxyCODONE HCl (ROXICODONE) 5 MG immediate release tablet take 1 tablet (5 mg) by mouth every 4 to 6 hours as needed for pain 5 Active Spironolactone (ALDACTONE) 25 MG tablet Take 25 mg by mouth. Active Active Problems Problem Noted Date Diagnosed Date Hyperlipidemia 08/06/2013 Chronic kidney disease, stage III (moderate) Overview (12/10/2021): Reaplcing Diagnoses that were inactivated after 03/16/2020 regulatory diagnosis import. Hypothyroidism 08/06/2013 Osteoarthritis 08/06/2013 Encounters Date Type Department Care Team Description 05/19/2025 3:20 PM EST Office Visit [facility] [address] [place], [place] [address] [phone] Demarcus Landis DPM Paronychia of great toe of right foot (Primary Dx); Ingrowing nail, right great toe; Pain in right toe(s) 05/18/2025 Telephone [facility] [address] [place] [phone] Demarcus Landis DPM Appointment 04/25/2025 8:50 AM EST Consult (Initial) [facility] [address] [place] [phone] Demarcus Landis DPM Ingrowing nail, right great toe (Primary Dx); Pain in right toe(s); Paronychia of great toe of right foot 04/25/2025 Telephone [facility] [address] [place] [phone] Demarcus Landis DPM Letter/form Request from Last 3 Months Immunizations Immunization Administration Dates Next Due Flu Vac Employee 03/31/2010 Flu Vac Purchased 36 mos and older 03/18/2009, Influenza,seasonal,trivalent ,preserva tive (FLUZONE MDV) 04/11/2007,04/12/2006,05/06/2005,2003 OPV, Trivalent (Admin Before 09/15/2015) 04/14/1990 PPD/TST (Tuberculin Skin Test) 06/23/2001,2000 PPV23 (Pneumovax) 07/05/2002 Td (adult), adsorbed 08/13/2005,04/14/1996,04/14 Family History Medical History Relation Name Comments Heart Disorder Father [place] Arthritis/Joint disorder Maternal grandmother Arthritis/Joint disorder Mother [...] PM EST Sexual Orientation Not on file Last Filed [...] 1-dose 75+ series) 2012 COVID-19 Vaccine ( season) 2025 Influenza (#1) 2025 03/31/2010, 08/2008, 04/02/2008, Additional history exists PPD Discontinued 06/25/2001, 01/2002, 06/23/2001, Additional history exists Pap Smear Discontinued 07/05/2002, 06/26/1999 LDL Cholesterol Discontinued 08/26/2006, 02/14, 11/26/2005, Additional history exists Eye/Retina Exam Discontinued 06/22/2018, 12/2018, 06/22/2018, Additional history exists EKG Discontinued 12/12/2021, 08/14, 06/20/2005, Additional history exists Chest Imaging Discontinued 09/20/2022, 08/15, 09/05/2022, Additional history exists Bone Density Completed 06/30/2024, 06/16, 02/18/2006, Additional history exists Mammogram/Breast Imaging Discontinued 025, 06/18/2023, 02/08/2008, Additional history exists HPV Vaccine (No Doses [...] Zoster (Zostavax) Discontinued Procedures * Due to [place] [employer] law, this organization might not be sharing [...] to Health Maintenance Results * Due to [place] [employer] law, this organization might not be sharing [...] EDT 12/13/2021 8:46 AM EDT us Lisset Pérez NP CARDIOVASCULAR-WITH INBSKT RTG Final Result [facility] * MAMMO BILATERAL ROUTINE (02/08/2008 10:07 AM EDT) RADIOLOGY REPORT [address] [address] __ DIAGNOSTIC IMAGING Name: RUPESH GIBBS Acct Num: [id number] Age: 72 MR Num: [id number] : 1935 Sex: F Phone Num: [phone] Film Num: [id number] Stay Type: O/P Room: Admit Phys:ROSELINE Ordering Phys: Admit Date:02/08/08 Discharge Date:02/08/08 Unsigned Transcriptions are Preliminary reports and do not represent medical or legal documents. __ MAMMO BILATERAL ROUTINE [id number] COMPLETE:02/08/08 10:07 [facility] [id number] ==>MAMMO ORDER<== COMPLETE:02/08/08 10:07 [facility] [id number] REASON FOR PROCEDURE: CYSTIC DISEASE Tx date: [...] Radiologist Copy for: File copy printer # [id number] Copy for: ROSELINE TRINH via fax Copy for: 607 MEDICAL RECORDS Anatomical Region Laterality Modality Other 02/08/2008 10:0 7 AM EDT Narrative 02/08/2008 1:22 PM EDT Reason for Study/History: CYSTIC DISEASE TEST(S) PROCESSED BY DANIEL DAUGHERTY Zac Castro MD IMAGING-[facility] Final Res ult * (ABNORMAL) LIPID PROFILE (08/26/2006 9:24 AM EDT) CHOLESTEROL, TOTAL 193 0 - 200 mg/dL [facility] (CLIA# [id number]) TRIGLYCERIDES 228(H) 30 - 200 mg/dL [facility] (CLIA# [id number]) HDL-CHOLESTEROL 48 35 - 60 mg/dL [facility] (CLIA# [id number]) LDL Cholesterol, Direct 118 0 - 130 mg/dL [facility] (CLIA# [id number]) VLDL 46 [facility] (CLIA# [id number]) CHD RELATIVE RISK RATIO (TOTAL/HDL) 4.0 [facility] (CLIA# [id number]) Comment: INTERPRETATION OF CARDIAC RISK The CHD [...] LABORATORY Final Res ult [facility] (CLIA# [id number]) [address] [place] [id number] * DEXA BONE DENSITY STUDY (02/18/2006 9:52 AM EDT) [facility] Signature RADIOLOGY REPORT [address] [address] __ DIAGNOSTIC IMAGING Name: RUPESH GIBBS Acct Num: [id number] Age: 70 MR Num: [id number] : 1935 Sex: F Phone Num: [phone] Film Num: [id number] Stay Type: O/P Room: Admit Phys:DAVIAN Douglas Phys: Admit Date:02/18/06 Discharge Date: 02/18/06 Unsigned Transcriptions are Preliminary reports and do not represent medical or legal documents. __ DEXA BONE DENSITY STUDY [id number] COMPLETE:02/18/06 9:52 PAL [id number] ==>XRAY ORDER<== COMPLETE:02/18/06 9:52 JOEL [id number] REASON FOR PROCEDURE: OSTEOPOROSIS Reviewed and Electronically [...] classification, with no increased fracture risk, however Wards triangle has a T score of 2.5 placing it in the osteoporosis category with a high fracture risk. Dictating Phys: NM Copy for: File copy printer # [phone] Copy for: MAX VALVERDE via modem Copy for: 604 MEDICAL RECORDS [facility] (CLIA# [id number]) Anatomical Region Laterality Modality Other 02/18/2006 9:52 AM EDT Narrative 02/18/2006 9:52 AM EDT Reason for Study/History: OSTEOPOROSIS TEST(S) PROCESSED BY DANIEL DAUGHERTY Anjelica Fagan MD [facility]-[place] Final Res ult * PAP SMEAR (07/05/2002 12:02 PM EST) [facility] SOURCE [facility] (CLIA# [id number]) Comment:None given PAP NUMBER OF SLIDES RECEIVED 1 [facility] (CLIA# [id number]) PAP CLINICAL HISTORY [facility] (CLIA# [id number]) Comment:Hysterectomy PAP SPECIMEN ADEQUACY [facility] (CLIA# [id number]) Comment:Satisfactory specime n for Cytologic evaluation. INTERPRETATION/RESUL T - PAP [facility] (CLIA# [id number]) Comment:NEGATIVE FOR INTRAEP ITHELIAL LESION OR MALIGNANCY PAP PATHOLOGY GROUP [facility] (CLIA# [id number]) Comment: Screening performed at [facility], [place] [address] 07/05/2002 12:0 2 PM EST 07/05/2002 12:02 PM EST us Anjelica Fagan MD PATHOLOGY Final Res ult [facility] (CLIA# [id number]) [address] [place] [address] from Last 3 Months or Most Recently Relevant to Health Maintenance Insurance [employer] MEDICARE PLAN EYEM[employer] ACCESS LILIANA Care Teams Certified Optician Relationship Specialty Start Date End Date Zac Castro MD [facility] [address] [place] [address] PCP - General Internal Medicine 03/31/10
--- OUTSIDE RECORDS SUMMARY | 2025-05-25 22:17 | XMS_ITS | Encounter Summary ---
Author Organization [facility] Address [address] [place] [address] Care Team Providers Care Wood Miller Name Role Phone Zac Castro MD Primary Care Provider + Encounter Details Date Type Department Care Team (Late st Contact Info) Description 06/05/2023 External Result Entry [facility] [address] [place] [address] Rochelle Ruiz MA Social History Tobacco Use [...] of this encounter Procedures * Due to [place] [employer] law, this organization might not be sharing negative HIV tests. Procedure Name Priority Date/Time Associated Diagnosis Comments CBC, OUTSIDE LAB Routine 05/21/2023 VITAMIN D 25 OH, OUTSIDE LAB Routine 05/21/2023 IRON, OUTSIDE LAB Routine 05/21/2023 FERRITIN, OUTSIDE LAB Routine 05/21/2023 COMPREHENSIVE METABOLIC PANEL, OUTSIDE LAB Routine 05/21/2023 documented in this encounter Results * Due to [place] [employer] law, this organization might not be sharing negative HIV tests. * CBC, Outside Lab (05/21/2023) Hemoglobin 14.6 g/dL Hematocrit 44.0 % Platelets 195 10*3/uL Blood Structure of peripheral vein / Unknown 05/21/2023 us Unknown Provider LAB BLOOD ORDERABLES Final R esult * Comprehensive Metabolic Panel, Outside Lab (05/21/2023) Pathologist [facility] Sodium 140 mmol/L Potassium 5.0 Chloride 103 Carbon Dioxide 21 Glucose 105 BUN 29 mg/dL Creatinine 1.02 mg/dL eGFR Non- 54 Calcium 9.5 mg/dL Total Protein 6.6 g/dL Albumin 4.3 g/dL Blood Structure of peripheral vein / Unknown 05/21/2023 us Unknown Provider LAB BLOOD ORDERABLES Final R esult * Iron, Outside Lab (05/21/2023) Pathologist [facility] Iron, Total 74 Blood Structure of peripheral vein / Unknown 05/21/2023 us Unknown Provider LAB BLOOD ORDERABLES Final R esult * Vitamin D 25 OH, Outside Lab (05/21/2023) Pathologist [facility] Vitamin D 25 OH 65.2 Blood 05/21/2023 us Unknown Provider LAB BLOOD ORDERABLES Final R esult * Ferritin, Outside Lab (05/21/2023) Pathologist [facility] Ferritin 127 Blood Structure of peripheral vein / Unknown 05/21/2023 us Unknown Provider MD LAB BLOOD ORDERABLES Final R esult documented in this encounter Visit Diagnoses Not on filedocumented in this encounter Care Teams Wood Miller Relationship Specialty Start Date End Date Zac Castro MD PCP - General Internal Medicine 03/27/21 documented as of this encounter
--- OUTSIDE RECORDS SUMMARY | 2025-05-25 22:17 | XMS_ITS | Clinical Summary ---
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 Procedure Name Priority Date/Time Associated Diagnosis Comments DEXA AXIAL AND TBS Routine 06/30/2024 9: 40 AM EST Age-related osteoporosis without current pathological fracture COMPREHENSIVE METABOLIC PANEL, OUTSIDE LAB Routine 05/21/2023 from Last 3 Months or Most Recently Relevant to Health Maintenance Results * Due to [place] state law, this organization might not be sharing negative HIV tests. * DXA Axial and TBS (06/30/2024 9:40 [...] to obtain the completed interpretation. Workstation ID: [id number] Narrative 06/30/2024 10:17 AM EST EXAM: BONE MINERAL DENSITY PROCEDURE: The bone mineral density (BMD) of the spine and proximal left femur was determined using an external X-ray source (IS Decisions). SITE: [facility] COMPARISON: Prior BMD of 2022 FINDINGS: L1: [...] in the individual patient. Resulting Agency Comment [id number] Procedure Note Rito Kirk MD - 06/30/2024 EXAM: BONE MINERAL DENSITY PROCEDURE: The bone mineral density (BMD) of the spine and proximal leftfemur was determined using an external X-ray source (IS Decisions). SITE: [facility] COMPARISON: Prior BMD of 2022 FINDINGS: L1: [...] possible to obtain thecompleted interpretation. Workstation ID: [id number] us Zac Castro MD IMG DXA PROCEDURES Final Result * Comprehensive Metabolic [...] Most Recently Relevant to Health Maintenance [facility] Advance Directives Documents on File Type Date Recorded Patient Customer Support Consultant Expl anation Health Care Proxy 09/10/2022 Health Care Proxy 09/10/2022 09/06/2022 Health Care Proxy 09/10/2022 Care Teams Barn Operator Relationship Specialty Start Date End Date Zac Castro MD PCP - General Internal Medicine 03/27/21
--- OUTSIDE RECORDS SUMMARY | 2025-05-25 22:17 | XMS_ITS | Encounter Summary ---
Author Organization [facility] Address [address] [place] [address] Care Team Providers Care Quartz Miner Name Role Phone Zac Castro MD Primary Care Provider [phone] [phone] Encounter Details Date Type Department Care Team (Late st Contact Info) Description 12/12/2021 Orders Only [facility] Pre-Admission Testing [address] [place] [id number] Lisset Pérez NP Social History Tobacco Use [...] of this encounter Procedures * Due to [place] [employer] law, this organization might not be sharing [...] in this encounter Results * Due to [place] [employer] law, this organization might not be sharing [...] PM EDT 12/13/2021 8:46 AM EDT Lisset Péerz NP CARDIOVASCULAR-WITH INBSKT RTG Final Result [facility] EKG [facility] * THYROID STIMULATING HORMONE (TSH) WITH FREE T4 REFLEX, SERUM (12/12/2021 12:03 PM EDT) Pathologist [facility] TSH 0.70 0.40 - 4.50 mIU/L [facility] 12/12/2021 12:0 3 PM EDT 12/12/2021 4:04 PM EDT Lisset Pérez NP LABORATORY Final Result [facility] [address] [place] [address] * HEMOGLOBIN A1C (12/12/2021 12:03 PM EDT) Pathologist [facility] Hemoglobin A1C 5.5 <5.7 % of total [...] diagnosis of diabetes in children. According to [place] Diabetes Association (ADA) guidelines, hemoglobin A1c <7.0% represents optimal control in non- diabetic patients. Different metrics may apply to specific patient populations. Standards of Medical Care in Diabetes(ADA). Estimated Average Glucose 119 mg/dL (calc) [facility] 12/12/2021 12:0 3 PM EDT 12/12/2021 4:04 PM EDT Narrative Resulting Agency Comment [id number] Lisset Pérez NP LABORATORY Final Result Performing Organization Address [facility] de Phone Number [facility] [address] [place] [phone] * ACTIVATED PARTIAL THROMBOPLASTIN TIME (APTT), PLASMA (12/12/2021 12:03 PM EDT) Thromboplastin Time 26 23 - 32 sec [facility] Comment: This test has not been validated for monitoring unfractionated heparin therapy. For testing that is validated for this type of therapy, please refer to the Heparin Anti-Xa assay (test code 75793). For additional information, please refer to http://education.SIZESEEKER/faq/YLY649 (This link is being provided for informational/educational purposes only.) 12/12/2021 12:0 3 PM EDT 12/12/2021 4:04 PM EDT Narrative Resulting Agency Comment [id number] Lisset Pérez NP LAB SAME DAY RESULT Final Resul t Performing Organization Address [facility] de Phone Number [facility] [address] [place] [address] * PROTHROMBIN TIME (PT) (INR), BLOOD (12/12/2021 12:03 PM EDT) INR 0.9 [facility] Comment: Reference Range 0.9-1.1 Moderate-intensity Warfarin Therapy 2.0-3.0 Higher-intensity Warfarin Therapy 3.0-4.0 PT 9.7 9.0 - 11.5 sec [facility] Comment: For additional information, please refer to http://education.[employer].ALENTY/faq/EBI340 (This link is being provided for informational/ educational purposes only.) 12/12/2021 12:0 3 PM EDT 12/12/2021 4:04 PM EDT Narrative Resulting Agency Comment [id number] Lisset Pérez TRAINING AND DOCUMENTATION SPECIALIST LAB SAME DAY RESULT Final Resul t Performing Organization Address [facility] Co de Phone Number [facility] [address] [place] [address] * CBC INCLUDES DIFFERENTIAL AND PLATELET COUNT [...] 4:04 PM EDT Narrative Resulting Agency Comment [id number] us Lisset Pérez NP LAB SAME DAY RESULT Final Resul t Performing Organization Address [facility] Co de Phone Number [facility] [address] [place] [address] * (ABNORMAL) BASIC METABOLIC PANEL WITH (GFR) (12/12/2021 12:03 PM EDT) Glucose 94 65 - 99 mg/dL [facility] Comment:Fasting reference in terval Urea Nitrogen Blood (BUN) 23 7 - 25 mg/dL [facility] Creatinine 1.07(H) 0.60 - 0.88 mg/dL [facility] Comment: For patients >49 years of age, the reference limit for Creatinine is approximately 13% higher for people identified as -[place]. EGFR 48(L) > OR = 60 mL/min/1. [...] needs for GFR calculation. Resulting Agency Comment [id number] us Lisset Pérez NP LABORATORY Final Result [facility] [address] [place] [address] * MRSA CULTURE SCREEN, NASAL ONLY (12/12/2021 12:01 PM EDT) Methicillin Resistant Staphylococcus Aureus Screen SEE NOTE [facility] Comment: MRSA CULTURE SCREEN Micro Number: [id number] Test Status: Final Specimen Source: Not given Specimen Quality: Adequate Result: No methicillin resistant Staphylococcus aureus (MRSA) isolated. 12/12/2021 12:0 1 PM EDT 12/12/2021 7:14 PM EDT Narrative Resulting Agency Comment [id number] Lisset Beto TRAINING AND DOCUMENTATION SPECIALIST LABORATORY Final Result [facility] [address] [place] [address] documented in this encounter Visit Diagnoses Diagnosis Preoperative examination Preoperative examination, unspecified Primary osteoarthritis of right knee Primary localized osteoarthrosis, lower leg Hyperglycemia Other abnormal glucose documented in this encounter Care Teams Quartz Miner Relationship Specialty Start Date End Date Zac Castro MD [facility] [address] [place] [address] PCP - General Internal Medicine 03/31/10 documented as of this encounter
--- OUTSIDE RECORDS SUMMARY | 2025-05-25 22:17 | XMS_ITS | Encounter Summary ---
Author Organization [facility] Address [address] [place] [address] Care Team Providers Care Foil Stamp Operator Name Role Phone Zac Castro MD Primary Care Provider [phone] Encounter Details Date Type Department Care Team (Late st Contact Info) Description 11/29/2021 Telephone [facility]. Ophthalmology [address] [place] [phone] Martin Boswell MD [address] [place] [phone] Social History Tobacco Use Types Packs/Day Years [...] reach letter sent. * Telephone Encounter - [employer] - 11/30/2021 4:04 PM EDT Hey PSS [...] Pt. Is currently at her office. PH: [phone]. Please advise. documented in this encounter Plan of Treatment Not on file documented as of this encounter Visit Diagnoses Not on filedocumented in this encounter Care Teams Foil Stamp Operator Relationship Specialty Start Date End Date Zac Castro MD [facility] [address] [place] [address] PCP - General Internal Medicine 03/31/10 documented as of this encounter
--- OUTSIDE RECORDS SUMMARY | 2025-05-25 22:17 | XMS_ITS | Encounter Summary ---
Author Organization [facility] Address [address] [place] [address] Care Team Providers Care Concert Singer Name Role Phone Zac Castro MD Primary Care Provider [phone] Encounter Details Date Type Department Care Team (Late st Contact Info) Description 07/19/2022 Orders Only [facility] Pre-Admission Testing [address] [place] [address] Ramona Caicedo, SHAVON Social History Tobacco Use [...] of this encounter Procedures * Due to [place] state law, this organization might not be [...] in this encounter Results * Due to [place] state law, this organization might not be sharing negative HIV tests. * MRSA CULTURE SCREEN, NASAL ONLY (07/19/2022 11:52 AM EST) Methicillin Resistant Staphylococcus Aureus Screen SEE NOTE [facility] Comment: MRSA CULTURE SCREEN Micro Number: [id number] Test Status: Final Specimen Source: Not given Specimen Quality: Adequate Result: No methicillin resistant Staphylococcus aureus (MRSA) isolated. 07/19/2022 11:5 2 AM EST 07/19/2022 9:31 PM EST Narrative Resulting Agency Comment [id number] Ramona Caicedo NP LABORATORY Final Result Performing Organization Address City/State/[facility] Co de Phone Number [facility] [address] [place] [address] * CBC INCLUDES DIFFERENTIAL AND PLATELET COUNT [...] 3:53 PM EST Narrative Resulting Agency Comment [id number] Ramona Caicedo REPA[facility] [employer] [facility] SAME DAY RESULT Final Result [facility] [address] [place] [address] * (ABNORMAL) BASIC METABOLIC PANEL WITH (GFR) [...] needs for GFR calculation. Resulting Agency Comment [id number] Ramona Caicedo NP LABORATORY Final Result Performing Organization Address [facility] Phone Number [facility] [address] [place] [address] * PROTHROMBIN TIME (PT) (INR), BLOOD (07/19/2022 10:54 AM EST) INR 1.0 [facility] Comment: Reference Range 0.9-1.1 Moderate-intensity Warfarin Therapy 2.0-3.0 Higher-intensity Warfarin Therapy 3.0-4.0 PT 10.0 9.0 - 11.5 sec [facility] Comment: For additional information, please refer to http://Sports MatchMaker.fitmob/faq/PIQ835 (This link is being provided for informational/ educational purposes only.) 07/19/2022 10:5 4 AM EST 07/19/2022 3:53 PM EST Narrative Resulting Agency Comment [id number] us Ramona Caicedo NP LAB SAME DAY RESULT Final Result Performing Organization Address [facility] Phone Number [facility] [address] [place] [address] * ACTIVATED PARTIAL THROMBOPLASTIN TIME (APTT), PLASMA (07/19/2022 10:54 AM EST) Thromboplastin Time 26 23 - 32 sec [facility] Comment: This test has not been validated for monitoring unfractionated heparin therapy. For testing that is validated for this type of therapy, please refer to the Heparin Anti-Xa assay (test code 56365). For additional information, please refer to http://Sports MatchMaker.Bilibot/faq/MXH440 (This link is being provided for informational/educational purposes only.) 07/19/2022 10:5 4 AM EST 07/19/2022 3:53 PM EST Narrative Resulting Agency Comment [id number] us Ramona Caicedo [employer] [facility] SAME DAY RESULT Final Result [facility] [address] [place] [address] documented in this encounter Visit Diagnoses Diagnosis Preoperative examination Preoperative examination, unspecified Primary osteoarthritis of left knee Primary localized osteoarthrosis, lower leg Primary hypertension Unspecified essential hypertension Acquired hypothyroidism Unspecified hypothyroidism Stage 3 chronic kidney disease, unspecified whether stage 3a or 3b CKD (HCC) Hyperlipidemia, unspecified hyperlipidemia type documented in this encounter Care Teams Concert Singer Relationship Specialty Start Date End Date Zac Castro MD [facility] [address] [place] [address] PCP - General Internal Medicine 03/31/10 documented as of this encounter
--- OUTSIDE RECORDS SUMMARY | 2025-05-25 22:17 | XMS_ITS | Data Portability ---
Author Organization [facility], svmg_admin Address [address] [place] [address] Care Team Providers Care Body Shop Manager Name Role Phone VIDAL ERNIE Referring Provider [phone] ZIGGY DUKES Primary Care Provider Assessment No assessment recorded. Plan of Treatment Reminders Order Date Submit Date Provider Last Modified By Organization Details Last Modified Time Details Appointments None recorde d. Lab TSH + free T4, serum 025 02/02/20 [place] [facility], [address], [place], [address], 07:05:43 Referral None recorde d. Procedures None recorde d. Surgeries None recorde d. Imaging None recorde d. Medication Orders None recorde d. Patient TargetsNo targets recorded. Patient Instructions Encounter Date Encounter Id Patient Instructions Last Modified By Organization Details Last Modified Time 02/01/2025 [id number] osteoporosis: care instructions Not available 02/01/2025 15:33:31 A healthy lifestyle: care instructions Not available 02/01/2025 15:33:31 Reason for Referral None Reported. Results Created Date Observation Date Name Description Value Unit Range Abnormal Flag Note LastModifiedBy Organization Detail LastModifiedTime 02/02/2002/02/2025 TSH+F REE T4 TSH 0.055 uIU/m L 0.450- 4.500 below low normal Not Available [facility] ([facility]) [address] [facility] [address], [place], [address], 02/02/2025 07:05:43 02/02/2002/02/2025 TSH+F REE T4 T4,free(dire ct) 1.83 NG/dL 0.82-1 .77 above high normal Not Available [facility] ([facility]) [address], [place], [address], 02/02/2025 07:05:43 Result Notes None recorded. Procedures Surgical History Date Name Laterality Status Provider Name and Address Organization Details Recorded Time 07/31/19 24 total knee replacement completed zach o'jarett [facility]. 02/01/2025 14:54:40 12/29/19 23 total knee replacement completed zach o'jarett [facility]. 02/01/2025 14:54:07 hysterectomy completed [facility]'j[facility]. 02/01/2025 14:54:53 tonsillectomy completed [facility] jefry'jarett [facility]. 02/01/2025 14:55:03 Hemorrhoidectomy completed zach o'jarett [facility]. 02/01/2025 14:55:24 cataract surgery completed [facility] o'jarett [facility]. 02/01/2025 14:57:34 Imaging Results None recorded. Procedure Notes None recorded. Medical Equipment None Reported. Allergies Allergen ID Allergen Name Allergen Category Reaction Reaction Severity Criticality Documentation Date Start Date Code Code System Note Provider Name and Address Organization Details Recorded Time 178725 honey bee venom medicatio n Not available Not available Not available 02/01/2025 41755 7 RxNorm zach jefry'jarett [facility]. 14:56:51 Medications Name Sig Start Date [...] Reported Body temperature Heart rate Oxygen saturation Systolic And Diastolic Provider Name and Address Organization Details Last Updated DateTime 5 158.75 cm 31.9 kg/m2 37701.6 5 g 7 97.3 [degF] 69 /min 97 % 178/80 mm[Hg] zach thorpe [facility] 14:58:13 Social History Question Answer Notes LastModified by Organizat ion Details LastModified Time Tobacco Smoking Status [facility] 14:52:02 What Is Your Level Of Caffeine Consumption? Occasional One Cup In The Morning [email or web address] Information not available 02/01/2025 Are You Deaf Or Do You Have Serious Difficulty Hearing? Yes [email or web address] Information not available 02/01/2025 Which Of Your Hands Is Dominant? Right Information not available 02/01/2025 What Was The Date Of Your Most Recent Tobacco Screening? 02/01/2025 [email or web address] Information not available 02/01/2025 Sex: Unknown Functional Status Question Answer Note LastModified by Organizat ion Details LastModified Time Do you use any illicit or recreational drugs? No [email or web address] Information not available 02/01/2025 What is your level of alcohol consumption? None [email or web address] Information not available 02/01/2025 Are you able to care for yourself independently? No [email or web address] Information not available 02/01/2025 Mental Status None recorded. Family History Relationship Description Onset Age of this Age Resolved Age Notes LastModified by Organization Details LastModified Time Father No current problems or disability [email or web address] Not available 01/14 14:50:46 Mother No current problems or disability [email or web address] Not available 01/14 14:50:46 Medical History No medical history recorded. Gynecological HistoryNo gynecological history recorded. Obstetrics History GPAL:G 0 P 0 0 0 0 Immunizations Vaccine Type Date Status Note Provider Nam e and Address Organization Details Recorded Time COVID-19, mRNA, LNP-S, PF, 100 mcg/0.5mL dose or 50 mcg/0.25mL dose 1 completed Not Available [facility] 02/01/2025 14:37:00 COVID-19, mRNA, LNP-S, PF, 100 mcg/0.5mL dose or 50 mcg/0.25mL dose 1 completed Not Available [facility] 02/01/2025 14:37:00 Influenza, MDCK, quadrivalent, preservative 2 completed Not Available [facility] 02/01/2025 14:37:00 Past Encounters Encounter ID Performer Location Encounter Start Date Encounter Closed Date Diagnosis/Indication Diagnosis SNOMED-CT Code Diagnosis ICD10 Code Diagnosis IMO Codes Diagnosis Note [id number] Tonio German MD [facility] [address] [address] 02/01/2025 14:35:58 02/01/2025 15:39:36 Primary hypothyroidism 48465477 E03.9 12691 I am repeating a TSH because I [...] and gait training to prevent falls Prediabetes 712946297 R7 3.03 356477 No medication s necessary. This following some diet and losing weight may help Health Concerns Section Related Observation LastModified by Organization Detai ls LastModified Time None Recorded Concern Status LastModified by Organization Details LastModified Time None Recorded Advance Directives Directive None Recorded Payers Insurance Date Sequence Insurance Name Policy Number Policy Molina Covered Member ID Molina Member ID Guarantor Name 02/11/2025 1 [employer] [facility] - SENIOR PLAN (MEDICARE REPLACEMENT HMO) Chey Ragland [id number] Chey Ragland 02/11/2025 1 [employer] [facility] Chey Ragland [id number] Chey Ragland Notes Date Note Type Note [...] well. She lives with her son Bone [email or web address]/30/2024 10:17 AM EST EXAM: BONE MINERAL DENSITYPROCEDURE: The bone mineral density (BMD) of the spine and proximal left femur was determined using an external X-ray source ([facility]).SITE: [facility]: Prior BMD of 2022FINDINGS:L1: BMD 0.84gm/cm2 [...] microarchitecture: >1.31; degraded: <1.24) Tonio German MD [address] [place] [address], [phone], [place] - [facility] Physician [facility]. 02/01/2025 17:01:53 OBGyn Episode No OBEpisode recorded.
--- OUTSIDE RECORDS SUMMARY | 2025-05-25 22:17 | XMS_ITS | Encounter Summary ---
Author Organization [facility] Address [address] [place] [address] Care Team Providers Care Deposit Clerk Name Role Phone Zac Castro MD Primary Care Provider + Reason for Visit * Reason Onset Date Comments Actionable Finding 11/27/2023 Encounter Details Date Type Department Care Team (Late st Contact Info) Description 11/27/2023 Telephone [facility] - Actionable Findings [address] [facility] [address] [place] [address] Yvette Galeano LPN Actionable Finding Social History [...] of radiology result(s). Yvette Crews LPN at [phone] documented in this encounter Plan of Treatment Not on file documented as of this encounter Visit Diagnoses Not on filedocumented in this encounter Care Teams Deposit Clerk Relationship Specialty Start Date End Date Zac Castro MD PCP - General Internal Medicine 03/27/21 documented as of this encounter
== END 2025-05-25 15:23 | disposition home or self-care (01) ==
LOC: HO.HNS 14:15
PROVIDERS: PCP Internal Medicine; Visit Provider Physician Assistant
DX: M48.062 Spinal stenosis, lumbar region with neurogenic claudication (principal)
CPT/HCPCS: 99024

== ENCOUNTER → 2025-05-25 15:27 | Outpatient (BNV) | payer MEDICARE, SELFPAY | PROVIDERS: PCP Internal Medicine; Visit Provider Radiology Diagnostic Radiology | DX: M48.062 Spinal stenosis, lumbar region with neurogenic claudication (principal); M51.369 Other intervertebral disc degeneration, lumbar region without mention of lumbar back pain or lower extremity pain; M41.56 Other secondary scoliosis, lumbar region; Z98.1 Arthrodesis status | CPT/HCPCS: 72100 ==